=== PATIENT | male | born 1940 | race Caucasian/White ===

== ENCOUNTER → 2016-10-17 | Outpatient (CLI) | payer OTHER, MEDICARE ==
[~2016-10-17] MED LIST: ACT30 PO; AMLO-110 PO; ASPCH81X PO; BENA1TAB19 PO; CHOL1TAB42 PO; DORZ1SOL6 OPB; DOXY50CA26 PO; GLIM1TAB2 PO; METF850T PO; OXYC-57 PO; SIMV80TA2 PO; VITAMIN B12 PO
== END | disposition home or self-care (01) ==
LOC: C.LABSPEC 17:35
PROVIDERS: ATTEND Urology
DX: N40.1 Benign prostatic hyperplasia with lower urinary tract symptoms (principal); R39.9 Unspecified symptoms and signs involving the genitourinary system

== ENCOUNTER → 2017-01-09 | Outpatient (CLI) | payer OTHER, MEDICARE ==
[~2017-01-09] MED LIST changes: -BENA1TAB19 PO; +BENA1TAB53 PO
--- NOTE | 2017-01-09 11:15 | DIAGNOSTIC IMAGING REPORT ---
KUB CLINICAL HISTORY: N20.0 [id number] COMPARISON STUDY: May 2012 FINDINGS: There are vascular calcifications present. There is no pathologic bowel dilatation. There is a right iliac stent present. There is a 6 mm calcification within the right mid abdomen, likely representing a renal calculus. A few additional tiny lower pole right renal calculi are suspected.. IMPRESSION: 1. Right-sided nephrolithiasis, with minimally diminished stone burden when compared the prior 2011 study 2. No evidence of pathologic bowel dilatation Electronically signed by: Hector Beltrán M.D. 01/09/2017 11:14 AM Dictated Date/Time: 01/09/2017 11:12 AM
== END | disposition home or self-care (01) ==
LOC: C.RAD 10:16
PROVIDERS: ATTEND Urology
DX: N20.0 Calculus of kidney (principal); N40.1 Benign prostatic hyperplasia with lower urinary tract symptoms; R39.9 Unspecified symptoms and signs involving the genitourinary system

== ENCOUNTER → 2017-01-15 | Outpatient (CLI) | payer OTHER, MEDICARE ==
[~2017-01-15] MED LIST changes: +BENA1TAB19 PO; -BENA1TAB53 PO
== END | disposition home or self-care (01) ==
LOC: C.LABMFLN 09:10
PROVIDERS: ATTEND Urology
DX: N20.0 Calculus of kidney (principal)

== ENCOUNTER → 2017-01-31 | Day surgery (SDC) | payer OTHER, MEDICARE ==
--- NOTE | 2017-01-16 11:04 | DIAGNOSTIC IMAGING REPORT ---
CHEST 2 VIEWS ROUTINE HISTORY: N20.0 [id number] COMPARISON: None. FINDINGS: The lungs are clear. Cardiac silhouette is normal in size. No pleural effusions. No pneumothorax. IMPRESSION: No acute process. Electronically signed by: Ryan Olmedo M.D. 01/16/2017 11:02 AM Dictated Date/Time: 01/16/2017 11:02 AM
[2017-01-16 12:18] LABS: BASO % 0.4 %; BASO ABS # 0.02 K/uL (0-0.2); COMPLETE YES; EOS % 2.7 %; HEMATOCRIT 36.5 % (42-52); IG% 0.4 %; LYMPH % 19.5 %; LYMPH ABS # 1.01 K/uL (1.2-3.4); MEAN CELL VOLUME 87.7 fL (80-100); MEAN CORPUSCULAR HEMOGLOBIN 27.9 pg (25-34); MEAN CORPUSCULAR HGB CONC 31.8 g/dl (32-36); MEAN PLATELET VOLUME 10.4 fL (7.4-10.4); MONO % 10.1 %; NEUT % 66.9 %; PLATELET COUNT 179 K/uL (130-400); RED BLOOD COUNT 4.16 M/uL (4.7-6.1); WHITE BLOOD COUNT 5.17 K/uL (4.8-10.8)
[2017-01-16 12:32] LABS: CALCIUM 9.2 mg/dl (8.5-10.1)
[2017-01-16 12:34] LABS: BLOOD UREA NITROGEN 21 mg/dl (7-18); BUN/CREATININE RATIO 17.7 (10-20); CARBON DIOXIDE 28 mmol/L (21-32); CHLORIDE 108 mmol/L (98-107); GLUCOSE 88 mg/dl (70-99); POTASSIUM 3.8 mmol/L (3.5-5.1); SODIUM 142 mmol/L (136-145)
[2017-01-20 10:00] VITALS: Ht 175.3 cm; Wt 113.6 kg
[~2017-01-31] VITALS: Ht 175.3 cm; Wt 113.6 kg
[~2017-01-31] MED LIST changes: +ATROPINE SULFATE 0.1 MG/ML 5ML SYR IV PRN; +CIPROFLOXACIN 400MG / D5W IV SCH; +EpHEDrine SULFATE INJ 50 MG/ML AMP IV PRN; +EpHEDrine SULFATE INJ 50 MG/ML AMP ONE; +FENTANYL CITRATE INJ 50 MCG/1 ML 2 ML VIAL IV PRN; +FENTANYL CITRATE INJ 50 MCG/1 ML 2 ML VIAL ONE; +LACTATED RINGER'S 1000ML 1,000 ML IV SCH; +LIDOCAINE HCL 2% 2 ML VIAL (20MG/ML) ONE; +MIDAZOLAM HCL 1 MG/ML 2ML VIAL ONE; +ONDANSETRON INJ 2 MG/ML 2 ML VIAL IV PRN; +ONDANSETRON INJ 2 MG/ML 2 ML VIAL ONE; +OXYCODONE/ACETAMINOPHEN 5-325 TAB PO PRN; +PROMETHAZINE HCL INJ 6.25 MG in SODIUM CHLORIDE 0.9% 50ML 50 ML IV PRN; +PROPOFOL IV EMULSION 10 MG/ML 20 ML VIAL IV ONE
--- NOTE | 2017-01-31 07:34 | DIAGNOSTIC IMAGING REPORT ---
KUB CLINICAL HISTORY: N20.0 [id number] COMPARISON STUDY: 01/07/2017 FINDINGS: There are vascular calcifications present. There is a right iliac stent. There is no pathologic bowel dilatation. There is an 8 mm calcification projected over the right renal shadow, consistent with a calculus. IMPRESSION: 1. Stable right-sided nephrolithiasis 2. No evidence of pathologic bowel dilatation Electronically signed by: Hector Beltrán M.D. 01/31/2017 7:32 AM Dictated Date/Time: 01/31/2017 7:31 AM
--- NOTE | 2017-01-31 07:43 | History & Physical Bridge Note ---
H&P Re-Evaluation Bridge Note: I have examined the patient, reviewed the History & Physical and in the interval since the performance of the History & Physical I have noted the following changes of clinical significance: No changes noted
--- NOTE | 2017-01-31 09:10 | Discharge Instructions ---
Discharge Instructions Date of Service Jan 31, 2017. Admission Reason for Admission: Right Stones;Nephrolithiasis N20.0 Discharge Discharge Diagnosis / Problem: R renal stone s/p ESWL Discharge Goals Goal(s): Improve function, Improve disease control, Therapeutic intervention Activity Recommendations Activity Limitations: as noted below Lifting Limitations: no more than 25 pounds, gradually increase as tolerated ( x 3-5 days) Exercise/Sports Limitations: rest today, gradually increase as tolerated (x 3- 5 days) May Resume Sexual Activity: when tolerated Shower/Bathe: no limitations Driving or Machine Use: resume 1 day after discharge . Instructions / Follow-Up Instructions / Follow-Up Strain urine for stone, bring in to follow-up visit Follow-up as scheduled, KUB Xray before visit as ordered Discharge Diet Recommended Diet: Regular Diet (good fluid intake) Procedures Procedures Performed: R renal ESWL Pending Studies Studies pending at discharge: no Medical Emergencies . Who to Call and When: Medical Emergencies: If at any time you feel your situation is an emergency, please call 911 immediately. . Non-Emergent Contact Non-Emergency issues call your: Urologist Call Non-Emergent contact if: you have a fever, temperature is above 101, your pain is not controlled, your pain is worsening, your pain is unusual for you, your pain is concerning you, you have any medication questions . . "Provider Documentation" section prepared by Gold Lopez. . VTE Core Measure Inpt VTE Proph given/why not?: SCD's [place] Drug Monitoring Program Search Results: patient reviewed within database, no issues identified
--- NOTE | 2017-01-31 09:29 | [facility] Operative Report ---
Operative Report Operative Date Jan 31, 2017. Pre-Operative Diagnosis Right Renal Stone Post-Operative Diagnosis Same Procedure(s) Performed Right Extracorporeal Shock Wave Lithotripsy Surgeon Dr Isaias Lopez Site Leasing Agent Surgeon(s) None Estimated Blood Loss 0ml Findings Excellent fragmentation on fluoroscopy Specimens None Drains NA Anesthesia GALMA Complication(s) None Disposition Recovery Room / PACU Indications R renal stone Description of Procedure The patient was brought to the litho suite. He was correctly identified and the stone was visualized on his most recent x-rays. After the correct time out was performed the patient was positioned over the therapy head. An adequate level of anesthesia was administered. The extracorporeal shockwave lithotripsy treatment was then commenced. Please see the [facility] sheet for complete treatment summary. After completion of the procedure the patient was taken to the recovery room in stable condition. I attest to the content of the Intraoperative Record and any orders documented therein. Any exceptions are noted below. I attest to the content of the Intraoperative Record and any orders documented therein. Any exceptions are noted below.
--- NOTE | 2017-01-31 09:47 | [facility] Post Operative Brief Note ---
Immediate Operative Summary Operative Date Jan 31, 2017. Pre-Operative Diagnosis Right Renal Stone Post-Operative Diagnosis Same Procedure(s) Performed R renal ESWL Surgeon Dr Isaias Lopez Recruitment Officer Surgeon(s) None Estimated Blood Loss 0ml Findings Excellent fragmentation on fluoroscopy Specimens None Drains NA Anesthesia GALMA Complication(s) None Disposition Recovery Room / PACU
[2017-01-31 10:52] VITALS: TEMP 36.4
--- NOTE | 2017-01-31 11:16 | Anesthesiology Progress Note ---
Anesthesia Post Op Note Date & Time Jan 31, 2017 at 11:15 Vital Signs Pain Intensity: 0 Vital Signs Past 12 Hours Date Time Temp Pulse Resp B/P (MAP) Pulse Ox O2 Delivery O2 Flow Rate FiO2 01/31/17 10:52 36.4 70 16 176/92 (120) 99 Room Air 01/31/17 10:41 36.7 70 16 161/87 97 Room Air 01/31/17 10:37 70 9 96 01/31/17 10:37 70 9 01/31/17 10:36 161/74 01/31/17 10:32 72 13 01/31/17 10:32 72 13 99 01/31/17 10:31 178/94 01/31/17 10:27 69 7 01/31/17 10:27 69 7 97 01/31/17 10:26 150/76 01/31/17 10:22 70 12 98 01/31/17 10:22 70 12 01/31/17 10:21 176/109 01/31/17 10:17 75 21 100 01/31/17 10:17 71 21 01/31/17 10:16 149/85 01/31/17 10:12 67 10 01/31/17 10:12 68 10 155/73 100 01/31/17 10:07 69 13 100 01/31/17 10:07 69 13 01/31/17 10:06 136/62 01/31/17 10:02 69 15 100 01/31/17 10:02 69 15 01/31/17 10:01 144/75 01/31/17 10:01 144/75 01/31/17 10:00 71 20 01/31/17 10:00 71 20 100 01/31/17 10:00 71 20 100 01/31/17 10:00 71 20 01/31/17 09:56 137/59 01/31/17 09:56 137/59 01/31/17 09:55 36.1 74 14 137/59 99 Mask 01/31/17 07:49 36.5 67 20 177/74 (108) 98 Room Air Notes Mental Status: alert / awake / arousable, participated in evaluation Pt Amnestic to Procedure: Yes Nausea / Vomiting: adequately controlled Pain: adequately controlled Airway Patency, RR, SpO2: stable & adequate BP & HR: stable & adequate Hydration State: stable & adequate Anesthetic Complications: no major complications apparent
[2017-01-31 11:29] VITALS: BP 179/83; PULSE 77; O2SAT 99
== END | disposition home or self-care (01) ==
LOC: X.SURG 07:36
PROVIDERS: ATTEND Urology
DX: N20.0 Calculus of kidney (principal); N40.1 Benign prostatic hyperplasia with lower urinary tract symptoms; N13.8 Other obstructive and reflux uropathy; I45.10 Unspecified right bundle-branch block; I10 Essential (primary) hypertension; E78.5 Hyperlipidemia, unspecified; E11.9 Type 2 diabetes mellitus without complications; I73.9 Peripheral vascular disease, unspecified; H40.9 Unspecified glaucoma; Z79.82 Long term (current) use of aspirin; Z79.84 Long term (current) use of oral hypoglycemic drugs; Z79.899 Other long term (current) drug therapy

== ENCOUNTER → 2017-02-11 | Outpatient (CLI) | payer OTHER, MEDICARE ==
[~2017-02-11] MED LIST changes: -ATROPINE SULFATE 0.1 MG/ML 5ML SYR IV PRN; -CIPROFLOXACIN 400MG / D5W IV SCH; -EpHEDrine SULFATE INJ 50 MG/ML AMP IV PRN; -EpHEDrine SULFATE INJ 50 MG/ML AMP ONE; -FENTANYL CITRATE INJ 50 MCG/1 ML 2 ML VIAL IV PRN; -FENTANYL CITRATE INJ 50 MCG/1 ML 2 ML VIAL ONE; -LACTATED RINGER'S 1000ML 1,000 ML IV SCH; -LIDOCAINE HCL 2% 2 ML VIAL (20MG/ML) ONE; -MIDAZOLAM HCL 1 MG/ML 2ML VIAL ONE; -ONDANSETRON INJ 2 MG/ML 2 ML VIAL IV PRN; -ONDANSETRON INJ 2 MG/ML 2 ML VIAL ONE; -OXYCODONE/ACETAMINOPHEN 5-325 TAB PO PRN; -PROMETHAZINE HCL INJ 6.25 MG in SODIUM CHLORIDE 0.9% 50ML 50 ML IV PRN; -PROPOFOL IV EMULSION 10 MG/ML 20 ML VIAL IV ONE
--- NOTE | 2017-02-11 12:03 | DIAGNOSTIC IMAGING REPORT ---
KUB CLINICAL HISTORY: Nephrolithiasis. COMPARISON STUDY: KUB January 31, 2017. FINDINGS: There has been apparent interval fragmentation of the right renal calculus since prior exam of January 31, 2017. Largest fragment measures 5 mm. No ureteral calculi or fragments are present. Pelvic calcifications reflect phleboliths. There is extensive vascular calcification. There is a right common iliac artery stent. IMPRESSION: 1. Apparent interval fragmentation of the right renal calculus since prior exam, as above. Calculi fragments measure up to 5 mm. 2. No ureteral calculi identified. Electronically signed by: Robert Grissom M.D. 02/11/2017 12:01 PM Dictated Date/Time: 02/11/2017 11:58 AM
== END | disposition home or self-care (01) ==
LOC: C.RAD 11:07
PROVIDERS: ATTEND Urology
DX: N20.0 Calculus of kidney (principal)

== ENCOUNTER → 2017-05-07 | Outpatient (CLI) | payer OTHER, MEDICARE ==
--- NOTE | 2017-05-07 12:20 | DIAGNOSTIC IMAGING REPORT ---
KUB HISTORY: Right sided kidney stones. Follow-up study. N20.0 [id number] COMPARISON: KUB 02/11/2017. FINDINGS: The bowel gas pattern is non-obstructive. There is no organomegaly. Right-sided renal calculi are again seen measuring up to 5 mm. Findings appear stable from comparison. No definite ureteral calculi. No left sided nephrolithiasis identified. Vascular calcifications noted. Vascular stent graft is noted within the right midabdomen at the L4-L5 level. No pneumoperitoneum or pneumatosis. No fracture. IMPRESSION: 1. Unchanged appearance of fragmented right-sided nephrolithiasis measuring up to 5 mm. 2. No definite ureteral calculi identified. Electronically signed by: Mahin Machado M.D. 05/07/2017 12:19 PM Dictated Date/Time: 05/07/2017 12:17 PM
== END | disposition home or self-care (01) ==
LOC: C.RAD 11:27
PROVIDERS: ATTEND Urology
DX: N20.0 Calculus of kidney (principal)

== ENCOUNTER 2023-02-07 10:04 | Inpatient (IN) ==
--- NOTE | 2023-02-07 10:22 | Emergency Department Note ---
Impression & Plan Pulmonary edema, Edema, peripheral, Chronic kidney insufficiency, Elevated troponin I level ED Provider Note NAME: LEANNA WOLFE AGE: 82 SEX: M : 1940 ARRIVES VIA: Walk-In INFORMANT: Patient, ED PROVIDER(S): Kavon Wallace DO CHIEF COMPLAINT: Shortness of breath HPI: The patient is an 82-year-old male who presented to the emergency department with his significant other for an evaluation of shortness of breath. The patient describes shortness of breath that began approximate 1 month ago. He states it is slowly worsening. He has a history of atrial fibrillation. The patient states that he did have a recent echocardiogram by his primary cinder block mason. He denies having any hemoptysis. He denies having any tarry stool but does have dark stool because he takes iron supplementation. He denies having any fevers. He does have a slight cough which is nonproductive. He does have lower extremity swelling which she states is not new for him. He has a history of diabetes. He states he has been compliant with his outpatient medication regimen otherwise. ROS: See above HPI for pertinent positives & negatives. A total of 10 systems reviewed and were otherwise negative. PAST MEDICAL HISTORY: See Below PAST SURGICAL HISTORY: See Below FAMILY HISTORY: See Below SOCIAL HISTORY: See Below HOME MEDICATIONS: See Below ALLERGIES: See Below VITALS: See Below PHYSICAL EXAMINATION: GENERAL: The patient is awake and alert. Does appear to be somewhat uncomfortable. EYES: The conjunctivae are clear. The pupils are round and reactive. EARS, NOSE, MOUTH AND THROAT: The nose is without any evidence of any deformity. NECK: The neck is nontender and supple. RESPIRATORY: Diminished breath sounds are noted at both bases. There is exertional dyspnea noted. CARDIOVASCULAR: Tachycardic and irregular heart sounds were noted to auscultation. No definite murmur was noted. GASTROINTESTINAL: The abdomen is soft. Abdomen is nontender. MUSCULOSKELETAL/EXTREMITIES: There is no evidence of gross deformity full range of motion is noted in the hips and shoulders. SKIN: Pedal edema was noted bilaterally. Skin was warm and dry. NEUROLOGIC: Patient is awake alert and oriented x3 MEDICAL DECISION MAKING: The patient is an 82-year-old male who presented to the emergency department for an evaluation of difficulty breathing. The patient had significant lower extremity edema. The patient's breath sounds were abnormal and his history and physical exam appear to be consistent with pulmonary edema. The patient was treated with a small dose of Lasix in the emergency department. He does have some abnormal creatinine which she states is baseline. He was also found to have an elevation in his BNP as well as his troponin. I discussed the patient's laboratory and radiographic studies with him. I also discussed this case with the on-call [facility] hospitalist. They have agreed to evaluate the patient in the emergency department for further management and disposition. The patient may require further cardiac work-up to determine cause as well as further therapy. Triage Nursing notes reviewed. Prior medical records reviewed Vital Signs: reviewed and remarkable for hypotension. Differential diagnosis: Reactive airway disease, pneumonia, pneumothorax, COPD, CHF, infections, cardiac ischemia, pulmonary embolism, musculoskeletal, gastrointestinal, as well as other pathologies. ER treatment provided: See below Diagnostics interpreted by me: ECG: EKG was obtained in the emergency department. My interpretation is atrial fibrillation at 100 bpm. Right bundle branch block pattern was noted. No PVCs were noted. Nonspecific ST segment abnormalities were appreciated. This was compared to a tracing from December 30, 2022. No changes were noted. Cardiac Monitoring: An order was placed for continuous cardiac monitoring. The monitor shows a rate of 95 bpm with atrial fibrillation. Laboratory studies: As stated above and show below. Imaging studies: See below. Radiographic imaging was reviewed by myself Consultation(s): I discussed this case with Dr. Simeon [facility]. Past Med/Surg History Medical History Abdominal aortic aneurysm (AAA) without rupture Anemia Chronic kidney disease, stage 3 Dyslipidemia Essential hypertension Hyperlipidemia Iron deficiency anemia Other hyperlipidemia Peripheral vascular disease Primary open angle glaucoma Rosacea Sensory polyneuropathy Type 2 diabetes mellitus Vitamin B-complex deficiency Vitamin D deficiency Social History Smoking Status: Never smoker Tobacco Type: Pipe Do You Dip or Chew Tobacco: No; Hx Alcohol Use: Yes Alcohol Intake Frequency Comment: Rarely Hx Substance Use: No Preferred Language: Ukrainian marital status: Current Living Situation: Spouse Feels Safe at Home: Yes Allergies Allergies Allergy/AdvReac Type Severity Reaction Status Date / Time carvedilol [From Coreg] AdvReac Unknown Elevated BP Unverified 01/20/23 15:32 Home Meds Home Medications Medication Instructions Recorded Confirmed amlodipine 5 mg tablet 5 mg PO DAILY 01/31/21 01/20/23 aspirin 81 mg tablet,delayed 81 mg PO DAILY 01/31/21 01/20/23 release bimatoprost 0.01 % eye drops 1 drp ophthalmic (eye) HS 01/31/21 01/20/23 (Lumigan) cholecalciferol (vitamin D3) 50 50 mcg PO DAILY 01/31/21 01/20/23 mcg (2,000 unit) capsule doxycycline hyclate 50 mg capsule 50 mg PO 2XWK 01/31/21 01/20/23 ferrous sulfate 325 mg (65 mg 650 mg PO DAILY 01/31/21 01/20/23 iron) tablet hydrochlorothiazide 25 mg tablet 25 mg PO DAILY 01/31/21 01/20/23 mecobalamin (vitamin B12) 5,000 5,000 mcg PO .COMPLEX 01/31/21 01/20/23 mcg disintegrating tablet pioglitazone 30 mg tablet 30 mg PO DAILY 01/31/21 01/20/23 benazepril 40 mg tablet 40 mg PO DAILY 02/21/21 01/20/23 metformin 500 mg tablet 850 mg PO BID 02/21/21 01/20/23 metoprolol succinate 25 mg 25 mg PO DAILY 01/20/23 01/20/23 tablet,extended release 24 hr Previous Rx's Medication Instructions Recorded atenolol 50 mg tablet 50 mg PO DAILY #30 tabs 01/14/23 atenolol 50 mg tablet 50 mg PO DAILY #30 tabs 01/14/23 amiodarone 200 mg tablet 200 mg PO BID #60 tabs 01/20/23 apixaban 2.5 mg tablet (Eliquis) 2.5 mg PO BID #60 tabs 01/20/23 Results & Data (ED) Vital Signs Vital Signs - 24 hr 02/07/23 10:08 02/07/23 10:34 02/07/23 10:34 Temperature 36.5 C Temperature Source Temporal Artery Scan Pulse Rate 110 H Pulse Rate [Apical] 103 H Pulse Rhythm [Apical] Irregular Respiratory Rate 18 28 H Respiratory Effort / Characteristics Short of Breath Respiratory Depth Respiratory Pattern Blood Pressure 147/89 H Blood Pressure [Left Arm] 104/60 Blood Pressure Mean 108 Blood Pressure Mean [Left Arm] 74 Blood Pressure Position Sitting Pulse Oximetry 99 95 Oxygen Delivery Method Room Air Room Air Sepsis Recent Fever Within 48 Hours No Sepsis New/Unexplained Change in Mental Status No Sepsis Action Taken by Nursing No Action Required 02/07/23 10:34 02/07/23 10:45 02/07/23 12:41 Temperature Temperature Source Pulse Rate 115 H Pulse Rate [Apical] 95 H Pulse Rhythm [Apical] Regular Respiratory Rate 18 Respiratory Effort / Characteristics Non-Labored Spontaneous Respiratory Depth Normal Respiratory Pattern Regular Blood Pressure Blood Pressure [Left Arm] 95/56 L Blood Pressure Mean Blood Pressure Mean [Left Arm] 69 Blood Pressure Position Pulse Oximetry 95 94 Oxygen Delivery Method Room Air Room Air Sepsis Recent Fever Within 48 Hours Sepsis New/Unexplained Change in Mental Status Sepsis Action Taken by Jail Medications Current Medication List: was personally reviewed by me Laboratory Data Attestation: I reviewed the patient's lab results. 02/07/23 10:30 02/07/23 10:30 Lab Results 02/07/23 02/07/23 02/07/23 Range/Units 10:26 10:30 10:30 WBC 8.07 (4.8-10.8) K/ul RBC 4.07 L (4.70-6.10) M/uL Hgb 11.9 L (14.0-18.0) g/dl Hct 35.7 L (42.0-52.0) % MCV 87.7 (80.0-100.0) fL MCH 29.2 (25.0-34.0) pg MCHC 33.3 (32.0-36.0) g/dL RDW Std Deviation 50.4 H (36.4-46.3) fL RDW Coeff of Piero 15.8 H (11.5-14.5) % Plt Count 223 (130-400) K/uL MPV 11.9 (9.4-12.4) fL Immature Gran % (Auto) 0.9 % Neut % (Auto) 75.8 % Lymph % (Auto) 10.5 % Scott % (Auto) 10.9 % Eos % (Auto) 1.7 % Baso % (Auto) 0.2 % Neut # (Auto) 6.11 (1.40-6.50) K/uL Lymph # (Auto) 0.85 L (1.2-3.4) K/uL Scott # (Auto) 0.88 H (0.11-0.59) K/uL Eos # (Auto) 0.14 (0-0.50) K/uL Baso # (Auto) 0.02 (0-0.2) K/uL Immature Gran # (Auto) 0.07 (0.01-0.20) K/uL PT 11.9 (9.0-12.0) Seconds INR 1.1 (0.9-1.1) APTT 29.7 (21.0-31.0) Seconds PTT Ratio 1.1 VBG pH (7.36-7.41) VBG pCO2 (38-50) mmHg VBG pO2 mmHg VBG HCO3 mmol/L VBG O2 Saturation % VBG Base Excess mEq/L Sodium (136-145) mmol/L Potassium (3.5-5.1) mmol/L Chloride (98-107) mmol/L Carbon Dioxide (21-32) mmol/L Anion Gap (3-11) BUN (6-23) mg/dl Creatinine (0.6-1.4) mg/dl Est Cr Clr Drug Dosing Est GFR ( Amer) ml/min Est GFR (Non-Af Amer) ml/min BUN/Creatinine Ratio (10-20) Glucose (70-99(Fasting)) mg/dl Calcium (8.6-10.3) mg/dl Magnesium (1.7-2.4) mg/dl Total Bilirubin (0.2-1.0) mg/dl AST (13-39) U/L ALT (7-52) U/L Alkaline Phosphatase (34-104) U/L Troponin I High Sens (0-20) pg/ml B-Natriuretic Peptide (0-100) pg/ml Total Protein (6.0-8.3) gm/dl Albumin (3.4-5.0) gm/dl Globulin (2.5-4.0) gm/dl Albumin/Globulin Ratio (0.9-2) SARS-CoV-2, RNA, NAAT NEGATIVE (NEGATIVE) 02/07/23 02/07/23 02/07/23 Range/Units 10:30 10:30 Unknown WBC (4.8-10.8) K/ul RBC (4.70-6.10) M/uL Hgb (14.0-18.0) g/dl Hct (42.0-52.0) % MCV (80.0-100.0) fL MCH (25.0-34.0) pg MCHC (32.0-36.0) g/dL RDW Std Deviation (36.4-46.3) fL RDW Coeff of Piero (11.5-14.5) % Plt Count (130-400) K/uL MPV (9.4-12.4) fL Immature Gran % (Auto) % Neut % (Auto) % Lymph % (Auto) % Scott % (Auto) % Eos % (Auto) % Baso % (Auto) % Neut # (Auto) (1.40-6.50) K/uL Lymph # (Auto) (1.2-3.4) K/uL Scott # (Auto) (0.11-0.59) K/uL Eos # (Auto) (0-0.50) K/uL Baso # (Auto) (0-0.2) K/uL Immature Gran # (Auto) (0.01-0.20) K/uL PT (9.0-12.0) Seconds INR (0.9-1.1) APTT (21.0-31.0) Seconds PTT Ratio VBG pH 7.31 L (7.36-7.41) VBG pCO2 48 (38-50) mmHg VBG pO2 25 mmHg VBG HCO3 24 mmol/L VBG O2 Saturation < 60.0 % VBG Base Excess -2.4 mEq/L Sodium 137 (136-145) mmol/L Potassium 4.6 (3.5-5.1) mmol/L Chloride 101 (98-107) mmol/L Carbon Dioxide 25 (21-32) mmol/L Anion Gap 11 (3-11) BUN 58 H (6-23) mg/dl Creatinine 2.34 H (0.6-1.4) mg/dl Est Cr Clr Drug Dosing Not Reportable Est GFR ( Amer) 29.3 ml/min Est GFR (Non-Af Amer) 25.3 ml/min BUN/Creatinine Ratio 24.8 H (10-20) Glucose 148 H (70-99(Fasting)) mg/dl Calcium 8.9 (8.6-10.3) mg/dl Magnesium 2.0 (1.7-2.4) mg/dl Total Bilirubin 0.7 (0.2-1.0) mg/dl AST 210 H (13-39) U/L ALT 152 H (7-52) U/L Alkaline Phosphatase 68 (34-104) U/L Troponin I High Sens 26.9 H (0-20) pg/ml B-Natriuretic Peptide 811 H (0-100) pg/ml Total Protein 6.4 (6.0-8.3) gm/dl Albumin 4.0 (3.4-5.0) gm/dl Globulin 2.4 L (2.5-4.0) gm/dl Albumin/Globulin Ratio 1.7 (0.9-2) SARS-CoV-2, RNA, NAAT (NEGATIVE) Administered Medications Discontinued Medications Furosemide (Furosemide Inj 20 Mg/2 Ml Vial) 20 mg IV ONE ONE Stop: 02/07/23 13:00 Last Admin: 02/07/23 13:40 Dose: 20 mg Documented By: GLADYS Imaging Data Attestation: I personally reviewed and interpreted this imaging study as follows: My Impression: 1 view chest x-ray was obtained in the emergency department. My interpretation is pulmonary edema with cardiomegaly, left pleural effusion was noted, this was compared to a chest x-ray from January 16, 2017. The pleural effusion is new compared to the previous chest x-ray, final report below. Radiologist's Impression: Chest X-Ray 02/07/23 10:14 XR chest 1V portable CLINICAL HISTORY: Dyspnea TECHNIQUE: Single frontal radiograph of the chest was obtained. Comparison: None available at the time of this dictation. FINDINGS: No lines and tubes are seen. Cardiomegaly is noted. Prominence and cephalization of the vasculature is seen. There is suggestion of a left pleural effusion. IMPRESSION: Cardiomegaly and mild pulmonary edema. Small left pleural effusion. ACT 112: Negative or not required by law. Electronically signed by: Soham Henson M.D. 02/07/2023 11:10 AM Discharge Plan Visit Data Chief Complaint: Shortness of Breath/Dyspnea Stated Complaint: SOB ED Provider: Kavon Wallace Discharge Problem: Pulmonary edema, Edema, peripheral, Chronic kidney insufficiency, Elevated troponin I level Patient Disposition: Being Evaluated by Hospitalist Forms Stand Alone Forms: My [facility] Prescriptions Prescriptions: No Action atenolol 50 mg tablet 50 mg PO DAILY Qty: 30 11RF Rx Instructions: Take 1 tablet by mouth every day. atenolol 50 mg tablet 50 mg PO DAILY Qty: 30 2RF pioglitazone 30 mg tablet 30 mg PO DAILY ferrous sulfate 325 mg (65 mg iron) tablet 650 mg PO DAILY hydrochlorothiazide 25 mg tablet 25 mg PO DAILY amlodipine 5 mg tablet 5 mg PO DAILY doxycycline hyclate 50 mg capsule 50 mg PO 2XWK aspirin 81 mg tablet,delayed release (DR/EC) 81 mg PO DAILY Lumigan 0.01 % drops 1 drp ophthalmic (eye) HS mecobalamin (vitamin B12) 5,000 mcg tablet,disintegrating 5,000 mcg PO .COMPLEX Rx Instructions: 5,000 mcg PO weekly cholecalciferol (vitamin D3) 50 mcg (2,000 unit) capsule 50 mcg PO DAILY metformin 500 mg tablet 850 mg PO BID benazepril 40 mg tablet 40 mg PO DAILY metoprolol succinate 25 mg tablet extended release 24 hr 25 mg PO DAILY amiodarone 200 mg tablet 200 mg PO BID Qty: 60 3RF Eliquis 2.5 mg tablet 2.5 mg PO BID Qty: 60 11RF Referrals Referrals: Nadia Sapp PA-C [Primary Care Provider] - Pulmonary edema Qualifiers: Chronicity: acute Qualified Code(s): J81.0 - Acute pulmonary edema Chronic kidney insufficiency Qualifiers: Chronic kidney disease stage: unspecified stage Qualified Code(s): N18.9 - Chronic kidney disease, unspecified
[2023-02-07 10:37] LABS: Base Excess VBG -2.4 mEq/L; HCO3 VBG 24 mmol/L; Oxygen Saturation VBG < 60.0 %; PCO2 VBG 48 mmHg (38-50); PO2 VBG 25 mmHg; pH VBG 7.31 (7.36-7.41)
[2023-02-07 10:47] LABS: Basophils # (auto) 0.02 K/uL (0-0.2); Basophils % (auto) 0.2 %; Eosinophils # (auto) 0.14 K/uL (0-0.50); Eosinophils % (auto) 1.7 %; Hematocrit (blood only) 35.7 % (42.0-52.0); Hemoglobin 11.9 g/dl (14.0-18.0); Immature Granulocytes # (auto) 0.07 K/uL (0.01-0.20); Immature Granulocytes % (auto) 0.9 %; Lymphocytes # (auto) 0.85 K/uL (1.2-3.4); Lymphocytes % (auto) 10.5 %; Mean Corpuscular Hemoglobin 29.2 pg (25.0-34.0); Mean Corpuscular Hgb Conc 33.3 g/dL (32.0-36.0); Mean Corpuscular Volume 87.7 fL (80.0-100.0); Mean Platelet Volume 11.9 fL (9.4-12.4); Monocytes # (auto) 0.88 K/uL (0.11-0.59); Monocytes % (auto) 10.9 %; Neutrophils # (auto) 6.11 K/uL (1.40-6.50); Neutrophils % (auto) 75.8 %; Platelet Count 223 K/uL (130-400); RDW Coefficient of Variation 15.8 % (11.5-14.5); RDW Standard Deviation 50.4 fL (36.4-46.3); Red Blood Count 4.07 M/uL (4.70-6.10); White Blood Count 8.07 K/ul (4.8-10.8)
[2023-02-07 11:00] LABS: Alanine Aminotransferase 152 U/L (7-52); Albumin Globulin Ratio 1.7 (0.9-2); Alkaline Phosphatase 68 U/L (34-104); Anion Gap 11 (3-11); Aspartate Aminotransferase 210 U/L (13-39); BUN Creatinine Ratio 24.8 (10-20); Bilirubin,Total 0.7 mg/dl (0.2-1.0); Blood Urea Nitrogen 58 mg/dl (6-23); Calcium 8.9 mg/dl (8.6-10.3); Carbon Dioxide 25 mmol/L (21-32); Chloride 101 mmol/L (98-107); Est GFR (African American) 29.3 ml/min; Est GFR (Non-African American) 25.3 ml/min; Globulin 2.4 gm/dl (2.5-4.0); Glucose 148 mg/dl (70-99(Fasting)); Potassium 4.6 mmol/L (3.5-5.1); Sodium 137 mmol/L (136-145); Total Protein 6.4 gm/dl (6.0-8.3)
[2023-02-07 11:04] LABS: Troponin I High Sensitivity 26.9 pg/ml (0-20)
[2023-02-07 11:11] LABS: INR 1.1 (0.9-1.1); Partial Thromboplastin Ratio 1.1; Partial Thromboplastin Time 29.7 Seconds (21.0-31.0); Prothrombin Time 11.9 Seconds (9.0-12.0)
--- NOTE | 2023-02-07 11:11 | XRay Report ---
XR chest 1V portable CLINICAL HISTORY: Dyspnea TECHNIQUE: Single frontal radiograph of the chest was obtained. Comparison: None available at the time of this dictation. FINDINGS: No lines and tubes are seen. Cardiomegaly is noted. Prominence and cephalization of the vasculature i s seen. There is suggestion of a left pleural effusion. IMPRESSION: Cardiomegaly and mild pulmonary edema. Small left pleural effusion. ACT 112: Negative or not required by law. Electronically signed by: Soham Henson M.D. 02/07/2023 11:10 AM
[2023-02-07] MEDS ORDERED: FUROSEMIDE INJ 20 MG/2 ML VIAL IV ONE (12:59)
--- NOTE | 2023-02-07 14:00 | History & Physical Report ---
Date of Service February 07, 2023 Assessment & Plan (1) CHF (congestive heart failure): Plan: Acute congestive heart failure Last echo 02/2022: EF 60-65%, no wall motion abnormalities, grade 1 diastolic dysfunction Repeat echo pending hs-sensitive troponin mildly elevated on admission, 2-hour pending. Continue Lasix Twice daily, titrate to net 1-1.5 L out per day He is with pulmonary edema, small left pleural effusion, and greatly increased bilateral lower extremity edema over the last month ? Rate related cardiomyopathy in the setting of difficult to control A-fib. No prior history of reduced ejection fraction She has not had any chest pain, chest pressure or angina, denies history of ACS/TN EKG without acute territorial signs of ischemia spent Atrial fibrillation, paroxysmal Admitting EKG: A-fib with PVCs. Nonspecific T wave changes without territorial T wave/ST segment changes. QTc 526. Rate 100 Holter 12/2022: Predominantly normal sinus rhythm, paroxysmal A-fib burden approximately 24% with 105 episodes of of up to 3 beats of ventricular tachycardia noted. Continued on metoprolol 25 mg extended release daily, will attempt up titration for A-fib control once patient volume status Amiodarone held for suspicion of hepatic toxicity. 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 Consulted on admission Suspect elevated and clinically volume overloaded, will continue Lasix at this time DVT prophylaxis: Anticoagulated on Eliquis CODE STATUS: DNR/DNI Diet: DM 2, low-salt, heart healthy Disposition: PCU for CHF with A-fib (2) Pulmonary edema: (3) PAF (paroxysmal atrial fibrillation): (4) Hypercholesterolemia: (5) Hypertension: (6) Chronic kidney disease, stage 3: (7) Type 2 diabetes mellitus: (8) Iron deficiency anemia: (9) Essential hypertension: History of Present Illness Primary Care Provider: Nadialeann Mccollum is an 82-year-old male with a past medical history of CKD, paroxysmal A- fib on amiodarone and apixaban, hyperlipidemia, hypertension recently seen 01/20/2023 as outpatient cardiology for exertional dyspnea and started on antiarrhythmic therapy who presents to the hospital today with shortness of breath. Feels shortness of breath has been slowly worsening over the last month and has not been associated with fever, chills, cough, melena, bleeding. In the ER he is mildly hypotensive at 95/56, pulse 95, 94% on room air. He has no leukocytosis, hemoglobin is 11.9 with no baseline available for review and normocytic, platelet count is normal, creatinine is 2.34 without baseline available for review, he has a mild transaminitis 210/152 without prior baseline, troponin is 26.9, BNP is elevated at 811, COVID is negative, and chest x-ray shows cardiomegaly with mild pulmonary edema and a small left pleural effusion. "Bill" reports he could climb stairs last week but has had increasing SoB last month, sinc Friday 'lost all power'. No chest pain or chest pressure No palpitations Legs have been much worse in the last week an dleaking, do not normally leak SoB 'just about with anything' but doesn't think he has much orthopnea, sleeps up on a single pillow. No pain No fevers, chills, or sweats No nausea, vomiting or diarrhea BM has been a few days, last was hard and brown. No blood/melena but is dark and near black since taking iron supplements He has been peeing more since beeing on lasix. Reccomended he see nephrology. Took no medicines this morning except eliquis. Per family practice note review: 12/19/2022: Creatinine 1.4 08/30/2022: ALT 13/AST 15 Medical History: Reviewed Medications: Reviewed Surgical History: Reviewed Family history: Reviewed Allergies: Reviewed Social History: No tobacco products, no Code Status:DNR/DNI Allergies Allergy/AdvReac Type Severity Reaction Status Date / Time carvedilol [From Coreg] AdvReac Unknown Elevated BP Unverified 01/20/23 15:32 Home Medications Medication Instructions Recorded Confirmed Type amlodipine 5 mg tablet 5 mg PO DAILY 01/31/21 02/07/23 History aspirin 81 mg tablet,delayed 81 mg PO DAILY 01/31/21 02/07/23 History release bimatoprost 0.01 % eye drops 1 drp ophthalmic (eye) HS 01/31/21 02/07/23 History ([place]igan) cholecalciferol (vitamin D3) 50 50 mcg PO DAILY 01/31/21 02/07/23 History mcg (2,000 unit) capsule doxycycline hyclate 50 mg capsule 50 mg PO 2XWK 01/31/21 02/07/23 History ferrous sulfate 325 mg (65 mg 650 mg PO DAILY 01/31/21 02/07/23 History iron) tablet hydrochlorothiazide 25 mg tablet 25 mg PO DAILY 01/31/21 02/07/23 History mecobalamin (vitamin B12) 5,000 5,000 mcg PO .COMPLEX 01/31/21 02/07/23 History mcg disintegrating tablet pioglitazone 30 mg tablet 30 mg PO DAILY 01/31/21 02/07/23 History benazepril 40 mg tablet 40 mg PO DAILY 02/21/21 02/07/23 History metformin 500 mg tablet 850 mg PO BID 02/21/21 02/07/23 History atenolol 50 mg tablet 50 mg PO DAILY #30 tabs 01/14/23 02/07/23 Rx amiodarone 200 mg tablet 200 mg PO BID #60 tabs 01/20/23 02/07/23 Rx apixaban 2.5 mg tablet (Eliquis) 2.5 mg PO BID #60 tabs 01/20/23 02/07/23 Rx metoprolol succinate 25 mg 25 mg PO DAILY 01/20/23 02/07/23 History tablet,extended release 24 hr Past Med/Surg History Medical History (Updated 02/07/23 @ 14:19 by Fadi Lindo MD) Abdominal aortic aneurysm (AAA) without rupture Anemia Chronic kidney disease, stage 3 Dyslipidemia Essential hypertension Hyperlipidemia Iron deficiency anemia Other hyperlipidemia Peripheral vascular disease Primary open angle glaucoma Rosacea Sensory polyneuropathy Type 2 diabetes mellitus Vitamin B-complex deficiency Vitamin D deficiency Social History Smoking Status: Never smoker Tobacco Type: Pipe Do You Dip or Chew Tobacco: No; Hx Alcohol Use: Yes Alcohol Intake Frequency Comment: Rarely Hx Substance Use: No Preferred Language: Qatari marital status: Current Living Situation: Spouse Feels Safe at Home: Yes Review of Systems Review of Systems: All systems reviewed & are unremarkable except as noted in Subjective Physical Exam Physical Exam: General: A&Ox3. NAD. Cooperative. HEENT: Atraumatic, normocephalic. Vision/hearing intact Pulm: Bibasilar crackles. Symmetrical chest rise. No increased work of breathing. No respiratory distress. Cardiac: irir, tachycardic, +sm. Radial pulses intact and symmetrical. +JVD. Abdominal: Nontender, nondistended, soft. BS present. Ext: Bilateral 3+ pitting edema, weeping wounds wrapped with clean dressing. Sensation diminished in feet bilaterally but grossly intact to soft touch. Results & Data Results & Data Vital Signs (Past 12 Hours) Vital Signs Temp Pulse Pulse Resp BP BP Pulse Ox 02/07/23 12:41 95 H 18 95/56 L 94 02/07/23 10:45 115 H 02/07/23 10:34 95 02/07/23 10:34 103 H 28 H 104/60 95 02/07/23 10:34 02/07/23 10:08 36.5 C 110 H 18 147/89 H 99 O2 Del Method 02/07/23 12:41 Room Air 02/07/23 10:45 02/07/23 10:34 Room Air 02/07/23 10:34 Room Air 02/07/23 10:34 Room Air 02/07/23 10:08 PG Care Time/CCT Total # of Minutes Spent Total Time Spent with Patient: Total time spent is greater than 50% in coordination of care (as documented) at patient's floor/unit and/or counseling patient: Coding Level of Care Code 88277 INT INP/OBS CARE 3/75MIN Diagnoses CHF (congestive heart failure) I50.9 Pulmonary edema J81.0 Chronicity: acute PAF (paroxysmal atrial fibrillation) I48.0 Hypercholesterolemia E78.00 Hypertension I10 Chronic kidney disease, stage 3 N18.30 Type 2 diabetes mellitus E11.9 Iron deficiency anemia D50.9 Essential hypertension I10 (2) Pulmonary edema Chronicity: acute Qualified Code(s): J81.0 - Acute pulmonary edema
--- NOTE | 2023-02-07 14:16 | Electrocardiogram Report ---
Test Reason : Blood Pressure : / mmHG Vent. Rate : 100 BPM Atrial Rate : 000 BPM P-R Int : 000 ms QRS Dur : 082 ms QT Int : 408 ms P-R-T Axes : 000 -11 013 degrees QTc Int : 526 ms Atrial fibrillation with premature ventricular or aberrantly conducted complexes Low voltage QRS Right bundle branch block Left anterior fascicular block Diffuse Minor Nonspecific T wave abnormality Abnormal ECG When compared with ECG of 30-DEC-2022 16:04, Vent. rate has decreased BY 52 BPM Confirmed by John Soto ([id number]) on 02/07/2023 12:27:12 PM Referred By: REFERRED SELF Confirmed By:John Soto
[2023-02-07 14:36] LABS: Appearance Urine Cloudy (Clear); Bacteria Urine Automated Negative (Negative); Bilirubin Urine Negative (Negative); Blood Urine 3+ (Negative); Color Urine Yellow; Glucose Urine UA Negative (Negative); Ketones Urine Trace (Negative); Leukocyte Esterase Urine Negative (Negative); Nitrite Urine Negative (Negative); Protein Urine 2+ (Negative); Specific Gravity Urine 1.017 (1.000-1.030); Urobilinogen Urine Negative (Negative)
[2023-02-07] MEDS ORDERED: PHARMACY GLYCEMIC MGMT CONSULT PRN (14:42)
[2023-02-07] MEDS ORDERED: GLUCOSE 10 TAB/TUBE PO PRN (14:42)
[2023-02-07] MEDS ORDERED: GLUCOSE 40% GEL 15 GM TUBE PO PRN (14:42)
[2023-02-07] MEDS ORDERED: CARBOHYDRATES FOR HYPOGLYCEMIA PO PRN (14:42)
[2023-02-07] MEDS ORDERED: GLUCAGON FOR INJ 1 MG VIAL SQ PRN (14:42)
[2023-02-07] MEDS ORDERED: DEXTROSE 50% 50 ML SYRINGE IV PRN (14:42)
[2023-02-07 15:16] LABS: Cast Urine Automated 0 /lpf (0-5)
[2023-02-07 15:17] LABS: Epithelial Cell Urine Auto 0-5 /lpf (0-5); RBC Urine Automated 0-4 /hpf (0-4)
--- NOTE | 2023-02-07 16:19 | Nephrology Consultation ---
Date of Consultation February 07, 2023 Assessment & Plan (1) AYS[place]Y (acute kidney injury): Non-oliguric. Electrolytes acceptable. Hypervolemic. Clinical presentation consistent with CRS. IV furosemide has been provided. There is no current indication for BARK FITTER. Urine microscopy is acellular. Renal US will be updated. Document strict I/O's. Repeat metabolic profile tomorrow AM. Medications appropriate for kidney function. Hold benazepril and metformin for now. (2) Chronic kidney disease, stage 3: CKD attributed to DKD. Baseline creatinine 1.4 mg/dL. Outpatient followup with nephrology encouraged. It would be easiest for Chun to arrange clinic in [place] with Dr. Witt. He was receptive to this recommendation. (3) Essential hypertension: BP acceptable or slightly low on presentation. Benazepril and HCTZ held. Furosemide to encourage negative fluid balance. Amlodipine PRN. Metoprolol for rate control. (4) CHF (congestive heart failure): TTE from February 2022 reviewed demonstrating normal LVEF. To be updated. Suspect decompensation in setting of atrial fibrillation. Management per cardiology and hospitalist team. Low sodium diet. Document daily weights. Furosemide PRN. (5) PAF (paroxysmal atrial fibrillation): Eliquis dosed for kidney function. (6) Diabetes mellitus: Outpatient followup for additional evaluation and management of DKD encouraged. History of Present Illness Reason for Consultation: Diabetic kidney disease Requesting Physician: Faid Lindo MD Attending Physician: Fadi Lindo MD History of Present Illness Mr. Chun Plasencia is an 82 year-old male with diabetes mellitus II, hypertension, paroxysmal atrial fibrillation, and chronic kidney disease. He presented to the ER at [facility] today for evaluation of progressive fluid retention and shortness of breath. Mr. Plasencia was seen and evaluated this afternoon with his at the bedside. I discussed the patient's history and plan of care with Dr. Lindo. The patient has not previously seen a legal file clerk. Baseline creatinine based on blood work from August 2022 and December 2022 is 1.4 mg/dL. Chun recently became aware of evidence of CKD and was planning to establish with a legal file clerk. He and his had multiple questions regarding the diagnosis. Fadi has been struggling with progressive dyspnea with exertion, fatigue, and fluid retention for the past 1+ month. He was recently diagnosed with atrial fibrillation and symptoms were attributed to the dysrhythmia. Metoprolol was added last month but symptoms progressed. Dr. Stark (cardiology) started amiodarone earlier this month. Unfortunately, symptoms appeared to progress faster after the medication was started. Chun describes increased fatigue after starting the medication. His has been increasingly concerned and encouraged evaluation in the ER today. Evaluation was notable for atrial fibrillation with increased ventricular rate. EKG with some PVC's or aberrancy. HS troponin mildly elevated. BNP 800. CXR demonstrating cardiomegaly and evidence of CHF. LFTs slightly elevated with AST 210 and ALT 152. Serum creatinine elevated at 1.52 mg/dL. UA with 2+ protein, 3+ blood but acellular microscopy. Furosemide 20 mg IV was provided. Chun reported some early improvement in symptoms. He was resting comfortably on his back at the time of my evaluation. He denies chest pains. He reports occasional palpitations over the past month but nothing sustained for more than a few seconds. He denies lightheadedness, dizziness, syncope or presyncope. However, he does feel that he has been more unsteady on his feet. Activity tolerance has been notably reduced due to dyspnea and fatigue. He has not appreciated any change in urine output. BP has been well controlled. He does not take any NSAIDS. Medical history is also notable for a history of BPH and kidney stones. Chun followed with Dr. Cartagena for several years but has not required urology follow up in ~2 years. PSA had remained normal. He has not experienced any symptoms of kidney stones in several years. There is no recent imaging of the kidneys available for review. He admits to difficulty controlling his blood sugars. He did not tolerate glipizide due to lightheadedness. He is currently being treated with pioglitazone and metformin. He has not developed retinopathy or neuropathy. For recent PAF, he is anticoagulated with apixaban without bleeding complications. BP has been controlled with a combination of amlodipine, atenolol, benazepril, and HCTZ. Metoprolol and amiodarone more recently added for atrial fibrillation. Allergies Allergy/AdvReac Type Severity Reaction Status Date / Time carvedilol [From Coreg] AdvReac Unknown Elevated BP Unverified 01/20/23 15:32 Home Medications Medication Instructions Recorded Confirmed Type amlodipine 5 mg tablet 10 mg PO DAILY 01/31/21 02/07/23 History aspirin 81 mg tablet,delayed 81 mg PO DAILY 01/31/21 02/07/23 History release bimatoprost 0.01 % eye drops 1 drp ophthalmic (eye) HS 01/31/21 02/07/23 History ([place]umigan) cholecalciferol (vitamin D3) 50 50 mcg PO DAILY 01/31/21 02/07/23 History mcg (2,000 unit) capsule doxycycline hyclate 50 mg capsule 50 mg PO 2XWK 01/31/21 02/07/23 History ferrous sulfate 325 mg (65 mg 650 mg PO DAILY 01/31/21 02/07/23 History iron) tablet hydrochlorothiazide 25 mg tablet 25 mg PO DAILY 01/31/21 02/07/23 History mecobalamin (vitamin B12) 5,000 5,000 mcg PO .COMPLEX 01/31/21 02/07/23 History mcg disintegrating tablet pioglitazone 30 mg tablet 30 mg PO DAILY 01/31/21 02/07/23 History benazepril 40 mg tablet 40 mg PO DAILY 02/21/21 02/07/23 History metformin 500 mg tablet 850 mg PO DAILY 02/21/21 02/07/23 History atenolol 50 mg tablet 50 mg PO DAILY #30 tabs 01/14/23 02/07/23 Rx apixaban 2.5 mg tablet (Eliquis) 2.5 mg PO BID #60 tabs 01/20/23 02/07/23 Rx metoprolol succinate 25 mg 25 mg PO DAILY 01/20/23 02/07/23 History tablet,extended release 24 hr amiodarone 200 mg tablet 200 mg PO DAILY 02/07/23 02/07/23 History simvastatin 80 mg tablet 80 mg PO DAILY 02/07/23 02/07/23 History Patient History Medical History Abdominal aortic aneurysm (AAA) without rupture Anemia Chronic kidney disease, stage 3 Dyslipidemia Essential hypertension Hyperlipidemia Iron deficiency anemia Other hyperlipidemia Peripheral vascular disease Primary open angle glaucoma Rosacea Sensory polyneuropathy Type 2 diabetes mellitus Vitamin B-complex deficiency Vitamin D deficiency Social History Smoking Status: Never smoker Tobacco Type: Pipe Do You Dip or Chew Tobacco: No; Hx Alcohol Use: Yes Alcohol Intake Frequency Comment: Rarely Hx Substance Use: No Preferred Language: German marital status: Current Living Situation: Spouse Feels Safe at Home: Yes Review of Systems Review of Systems: All systems reviewed & are unremarkable except as noted in HPI & below Constitutional: + fatigue and + weight gain Respiratory: + dyspnea; no cough Cardiovascular: + dyspnea on exertion and + edema; no chest pain, no orthopnea, no palpitations, no lightheadedness and no syncope Physical Exam Constitutional: well developed; no acute distress Eyes: no scleral abnormality and no corneal abnormality ENMT: Mouth: no oral mucosal abnormality and oral mucous membranes not dry Neck: normal visual inspection and trachea midline Respiratory: normal respiratory effort; not tachypneic Auscultation: + rales Cardiovascular: Rate/Rhythm: + irregularly irregular Heart Sounds: normal S1 and normal S2 Extremities: + edema Musculoskeletal: Extremities: no cyanosis and no clubbing Skin: normal turgor; no jaundice Neurologic: Motor/Sensory: no tremor and no asterixis Psychiatric: Orientation: alert and oriented x 3 Results & Data Vital Signs (Past 12 Hours) Vital Signs Temp Pulse Pulse Resp BP BP Pulse Ox 02/07/23 15:46 118 H 02/07/23 14:21 123 H 20 126/92 93 02/07/23 12:41 95 H 18 95/56 L 94 02/07/23 10:45 115 H 02/07/23 10:34 95 02/07/23 10:34 103 H 28 H 104/60 95 02/07/23 10:34 02/07/23 10:08 36.5 C 110 H 18 147/89 H 99 O2 Del Method 02/07/23 15:46 02/07/23 14:21 Room Air 02/07/23 12:41 Room Air 02/07/23 10:45 02/07/23 10:34 Room Air 02/07/23 10:34 Room Air 02/07/23 10:34 Room Air 02/07/23 10:08 Laboratory Results Laboratory Results - last 24 hr 02/07/23 02/07/23 02/07/23 10:26 10:30 10:30 WBC 8.07 RBC 4.07 L Hgb 11.9 L Hct 35.7 L MCV 87.7 MCH 29.2 MCHC 33.3 RDW Std Deviation 50.4 H RDW Coeff of Piero 15.8 H Plt Count 223 MPV 11.9 Immature Gran % (Auto) 0.9 Neut % (Auto) 75.8 Lymph % (Auto) 10.5 [place] % (Auto) 10.9 Eos % (Auto) 1.7 Baso % (Auto) 0.2 Neut # (Auto) 6.11 Lymph # (Auto) 0.85 L [place] # (Auto) 0.88 H Eos # (Auto) 0.14 Baso # (Auto) 0.02 Immature Gran # (Auto) 0.07 PT 11.9 INR 1.1 APTT 29.7 PTT Ratio 1.1 VBG pH VBG pCO2 VBG pO2 VBG HCO3 VBG O2 Saturation VBG Base Excess Sodium Potassium Chloride Carbon Dioxide Anion Gap BUN Creatinine Est Cr Clr Drug Dosing Est GFR ( Amer) Est GFR (Non-Af Amer) BUN/Creatinine Ratio Glucose POC Glucose Calcium Magnesium Total Bilirubin AST ALT Alkaline Phosphatase Troponin I High Sens B-Natriuretic Peptide Total Protein Albumin Globulin Albumin/Globulin Ratio Urine Color Urine Appearance Urine pH Ur Specific [place] Urine Protein Urine Glucose (UA) Urine Ketones Urine Blood Urine Nitrite Urine Bilirubin Urine Urobilinogen Ur Leukocyte Esterase Urine WBC (Auto) Urine RBC (Auto) U Hyaline Cast (Auto) U Epithel Cells (Auto) Urine Bacteria (Auto) SARS-CoV-2, RNA, NAAT NEGATIVE 02/07/23 02/07/23 02/07/23 10:30 10:30 12:00 WBC RBC Hgb Hct MCV MCH MCHC RDW Std Deviation RDW Coeff of Piero Plt Count MPV Immature Gran % (Auto) Neut % (Auto) Lymph % (Auto) [place] % (Auto) Eos % (Auto) Baso % (Auto) Neut # (Auto) Lymph # (Auto) [place] # (Auto) Eos # (Auto) Baso # (Auto) Immature Gran # (Auto) PT INR APTT PTT Ratio VBG pH 7.31 L VBG pCO2 48 VBG pO2 25 VBG HCO3 24 VBG O2 Saturation < 60.0 VBG Base Excess -2.4 Sodium 137 Potassium 4.6 Chloride 101 Carbon Dioxide 25 Anion Gap 11 BUN 58 H Creatinine 2.34 H Est Cr Clr Drug Dosing Not Reportable Est GFR ( Amer) 29.3 Est GFR (Non-Af Amer) 25.3 BUN/Creatinine Ratio 24.8 H Glucose 148 H POC Glucose Calcium 8.9 Magnesium 2.0 Total Bilirubin 0.7 AST 210 H ALT 152 H Alkaline Phosphatase 68 Troponin I High Sens 26.9 H B-Natriuretic Peptide Total Protein 6.4 Albumin 4.0 Globulin 2.4 L Albumin/Globulin Ratio 1.7 Urine Color Yellow Urine Appearance Cloudy A Urine pH 5.0 Ur Specific [place] 1.017 Urine Protein 2+ H Urine Glucose (UA) Negative Urine Ketones Trace H Urine Blood 3+ H Urine Nitrite Negative Urine Bilirubin Negative Urine Urobilinogen Negative Ur Leukocyte Esterase Negative Urine WBC (Auto) 1-5 Urine RBC (Auto) 0-4 U Hyaline Cast (Auto) 0 U Epithel Cells (Auto) 0-5 Urine Bacteria (Auto) Negative SARS-CoV-2, RNA, NAAT 02/07/23 02/07/23 02/07/23 14:21 15:55 Unknown WBC RBC Hgb Hct MCV MCH MCHC RDW Std Deviation RDW Coeff of Piero Plt Count MPV Immature Gran % (Auto) Neut % (Auto) Lymph % (Auto) [place] % (Auto) Eos % (Auto) Baso % (Auto) Neut # (Auto) Lymph # (Auto) [place] # (Auto) Eos # (Auto) Baso # (Auto) Immature Gran # (Auto) PT INR APTT PTT Ratio VBG pH VBG pCO2 VBG pO2 VBG HCO3 VBG O2 Saturation VBG Base Excess Sodium Potassium Chloride Carbon Dioxide Anion Gap BUN Creatinine Est Cr Clr Drug Dosing Est GFR ( Amer) Est GFR (Non-Af Amer) BUN/Creatinine Ratio Glucose POC Glucose 127 H Calcium Magnesium Total Bilirubin AST ALT Alkaline Phosphatase Troponin I High Sens 26.6 H B-Natriuretic Peptide 811 H Total Protein Albumin Globulin Albumin/Globulin Ratio Urine Color Urine Appearance Urine pH Ur Specific [place] Urine Protein Urine Glucose (UA) Urine Ketones Urine Blood Urine Nitrite Urine Bilirubin Urine Urobilinogen Ur Leukocyte Esterase Urine WBC (Auto) Urine RBC (Auto) U Hyaline Cast (Auto) U Epithel Cells (Auto) Urine Bacteria (Auto) SARS-CoV-2, RNA, NAAT Diagnostic Findings XR chest 1V portable Cardiomegaly is noted. Prominence and cephalization of the vasculature is seen. There is suggestion of a left pleural effusion. IMPRESSION: Cardiomegaly and mild pulmonary edema. Small left pleural effusion. PG Care Time/CCT Total # of Minutes Spent Total Time Spent with Patient: Total time spent is greater than 50% in coordination of care (as documented) at patient's floor/unit and/or counseling patient: Coding Level of Care Code 98877 IN/OBS CONSULT LVL 4,60M Diagnoses YASMANY (acute kidney injury) N17.9 Chronic kidney disease, stage 3 N18.30 Essential hypertension I10 CHF (congestive heart failure) I50.9 PAF (paroxysmal atrial fibrillation) I48.0 Diabetes mellitus E11.9
[2023-02-07] MEDS ORDERED: ACETAMINOPHEN 325 MG TAB PO PRN (17:06)
--- NOTE | 2023-02-07 17:10 | Ultrasound Report ---
US liver CLINICAL HISTORY: Transaminitis. COMPARISON STUDY: KUB January 08, 2019. FINDINGS: A small right pleural effusion is incidentally noted. No hepatic lesions are identified. Th ere is slight prominence of the portal triads. There is no biliary ductal dilatation. The common bile duct measures 5 mm in caliber. The gallbladder is mildly distended. There is no gallbladder wall thi ckening. No gallstones are noted. A small amount of sludge within the gallbladder is noted. No sonogr aphic Muller sign was elicited. Pancreas is obscured. Please note that the renal ultrasound will be r eported separately. IMPRESSION: 1. No gallstones or biliary ductal dilatation. 2. Mildly distended gallbladder with a small amount of sludge. However, no sonographic Muller sign or wall thickening. 3. Small right pleural effusion. ACT 112: Negative or not required by law. Electronically signed by: Robert Grissom M.D. 02/07/2023 5:08 PM
--- NOTE | 2023-02-07 17:11 | XCELERA ---
[id number]
--- NOTE | 2023-02-07 17:16 | Ultrasound Report ---
US renal/blad retro comp CLINICAL HISTORY: YASMANY on CKD TECHNIQUE: Multiple sonographic real-time images of the kidneys and bladder were obtained. COMPARISON: None available at the time of this dictation. FINDINGS: The right kidney measures 10.1 cm in length, and the left kidney measures 10.6 cm in length. The right kidney is normal in size, contour, cortical thickness, and echogenicity. No hydronephrosis is identified. Vascular calcifications versus nonobstructing stones. A 1.3 cm cyst is noted. The left kidney is normal in size, contour, cortical thickness and echogenicity. No hydronephrosis i s identified. Vascular calcifications versus nonobstructive stones. 1.4 cm cyst. The bladder is partially distended. Jets were not visualized. IMPRESSION: No evidence of hydronephrosis. ACT 112: Negative or not required by law. Electronically signed by: Soham Henson M.D. 02/07/2023 5:14 PM
--- NOTE | 2023-02-07 17:49 | Cardiology Consultation ---
Date of Consultation February 07, 2023 Assessment & Plan (1) Persistent atrial fibrillation: Recent onset atrial fibrillation which is now persistent for 2 months with currently suboptimally controlled ventricular rate. Would consolidate his negative chronotropic medication by using metoprolol alone, therefore agree with discontinuing amiodarone and atenolol and titrating metoprolol upward as tolerated. Temporarily switch to metoprolol tartrate to allow aggressive upward titration with less concern for sustained hypotension if BP does not tolerate. Given borderline pressure, would discontinue amlodipine to allow for more aggressive beta-stephanie titration as well as to potentially reduce leg edema. Presently, would change metoprolol succinate to metoprolol tartrate at 25 mg p.o. every 6 hours, with hold order for systolic blood pressure less than 85 mmHg. Once his ventricular rate is well controlled, could switch back to long-acting metoprolol succinate. [id number] score is at least 5, continue on apixaban at reduced dose due to advanced age and diminished renal function. (2) Heart failure with mid-range ejection fraction (HFmEF): Markedly hypervolemic, agree with aggressive IV diuresis (furosemide 40 mg IV twice daily). With significant diuresis expected, will probably need potassium supplement, but given his renal insufficiency would not add prophylactically but based on daily electrolytes. His systolic function has declined considerably, suspect this is secondary to uncontrolled ventricular rate, as such LV function likely will improve as his rate control improves. (3) Moderate mitral regurgitation: His increased mitral regurgitation and pulmonary hypertension may improve with better rate control. (4) Elevated liver transaminase level: Unclear whether this is due to passive liver congestion or direct toxicity of amiodarone, either way agree with discontinuation of amiodarone. At this point, no abdominal pain or other suggestion of primary hepatic disease, follow daily transaminases with expectation they will improve off amiodarone and with treatment of CHF. (5) YASMANY (acute kidney injury): Likely secondary to CHF/volume overload superimposed on chronic kidney disease. Appreciate nephrology input by Dr. Argueta. (6) Chronic kidney disease, stage 3: As above. (7) Hypertension: History of hypertension, currently BP running low normal. To avoid having to hold beta-stephanie and diminishing aggressiveness of rate control titration, would discontinue amlodipine. History of Present Illness Reason for Consultation: A-fib/CHF Requesting Physician: Fadi Lindo MD Attending Physician: Fadi Lindo MD History of Present Illness 82-year-old man with obesity, hypertension, mitral regurgitation (currently moderate), and DM who was recently diagnosed with paroxysmal atrial fibrillation (onset November 2022), now admitted with progressive dyspnea on exertion and leg edema, noted to be in persistent atrial fibrillation with suboptimally controlled ventricular response (120 bpm range) and to have transaminase elevations. He was first noted to have atrial fibrillation 2 months ago, metoprolol was added to his atenolol, then amiodarone initiated in hopes of returning him to sinus rhythm. However, he felt very washed out and noted marked dyspnea on exertion and fatigue, he reduced his amiodarone from 200 mg twice daily to 200 mg daily. He continued to feel more dyspneic and noted worsening leg edema and presented to the emergency department today. He denies chest pain at any time, subjective palpitations, presyncope, or syncope. He does have mild orthostatic lightheadedness from time to time. He notes that his weight has not really changed over the past few weeks. ER evaluation showed atrial fibrillation with right bundle branch block, left anterior fascicular block, diffuse nonspecific minor T wave abnormality. Compared with 12/30/2022 ECG, ventricular rate had decreased by 52 bpm. Chest x- ray showed cardiomegaly and mild pulmonary edema with a small left pleural effusion. Troponins were 26.9 and 26.6. Electrolytes were normal but he was azotemic with a BUN of 58 and a creatinine of 2.34. Transaminases were elevated with AST of 210 and ALT of 152. Pulse ox was 93% on room air, therefore supplemental oxygen was not initiated. Echocardiogram today showed EF 35 to 40%, moderate global hypokinesis, moderate mitral regurgitation, mild pulmonary hypertension. Compared with 2021 study, LV systolic function has declined, mitral regurgitation is more severe, mild pulmonary hypertension is now noted. At the time of my evaluation in the emergency department, he was comfortable at rest and able to lie flat, however even minimal activity resulted in dyspnea. Allergies Allergy/AdvReac Type Severity Reaction Status Date / Time carvedilol [From Coreg] AdvReac Unknown Elevated BP Unverified 01/20/23 15:32 Home Medications Medication Instructions Recorded Confirmed Type amlodipine 5 mg tablet 10 mg PO DAILY 01/31/21 02/07/23 History aspirin 81 mg tablet,delayed 81 mg PO DAILY 01/31/21 02/07/23 History release bimatoprost 0.01 % eye drops 1 drp ophthalmic (eye) HS 01/31/21 02/07/23 History ([place]) cholecalciferol (vitamin D3) 50 50 mcg PO DAILY 01/31/21 02/07/23 History mcg (2,000 unit) capsule doxycycline hyclate 50 mg capsule 50 mg PO 2XWK 01/31/21 02/07/23 History ferrous sulfate 325 mg (65 mg 650 mg PO DAILY 01/31/21 02/07/23 History iron) tablet hydrochlorothiazide 25 mg tablet 25 mg PO DAILY 01/31/21 02/07/23 History mecobalamin (vitamin B12) 5,000 5,000 mcg PO .COMPLEX 01/31/21 02/07/23 History mcg disintegrating tablet pioglitazone 30 mg tablet 30 mg PO DAILY 01/31/21 02/07/23 History benazepril 40 mg tablet 40 mg PO DAILY 02/21/21 02/07/23 History metformin 500 mg tablet 850 mg PO DAILY 02/21/21 02/07/23 History atenolol 50 mg tablet 50 mg PO DAILY #30 tabs 01/14/23 02/07/23 Rx apixaban 2.5 mg tablet (Eliquis) 2.5 mg PO BID #60 tabs 01/20/23 02/07/23 Rx metoprolol succinate 25 mg 25 mg PO DAILY 01/20/23 02/07/23 History tablet,extended release 24 hr amiodarone 200 mg tablet 200 mg PO DAILY 02/07/23 02/07/23 History simvastatin 80 mg tablet 80 mg PO DAILY 02/07/23 02/07/23 History Patient History Medical History Abdominal aortic aneurysm (AAA) without rupture Anemia Chronic kidney disease, stage 3 Dyslipidemia Essential hypertension Hyperlipidemia Iron deficiency anemia Other hyperlipidemia Peripheral vascular disease Primary open angle glaucoma Rosacea Sensory polyneuropathy Type 2 diabetes mellitus Vitamin B-complex deficiency Vitamin D deficiency Social History Smoking Status: Never smoker Tobacco Type: Pipe Do You Dip or Chew Tobacco: No; Hx Alcohol Use: Yes Alcohol Intake Frequency Comment: Rarely Hx Substance Use: No Preferred Language: Italian marital status: Current Living Situation: Spouse Feels Safe at Home: Yes Physical Exam Physical Exam: Elderly white male in no acute distress, does exhibit dyspnea with minimal exertion. Weight 254 pounds, this is actually 17 pounds less than his weight 3 weeks ago. BP normotensive at 126/92 mmHg. Pulse 120 bpm and irregular. Skin: Scattered ecchymoses both forearms, no generalized lesions. HEENT: unremarkable. Neck: JVP nearly to the angle of the jaw at 90 degrees, no carotid bruits. Lungs: Mildly diminished breath sounds with bibasilar crackles, no wheezing, rhonchi, or accessory muscle use. Cardiac: Faint heart tones, irregular/tachycardic rhythm, no obvious murmur or gallop. Abdomen: benign. Extremities: 3+ pretibial pitting edema with marked erythema and weeping areas both lower legs. Neurologic: normal affect and conversation, nonfocal. Results & Data Laboratory Results Labs as noted in HPI. Diagnostic Findings Chest x-ray, ECG, and echocardiogram as noted in HPI. PG Care Time/CCT Total # of Minutes Spent Total Time Spent with Patient: Total time spent is greater than 50% in coordination of care (as documented) at patient's floor/unit and/or counseling patient: Coding Level of Care Code 15449 IN/OBS CONSULT LVL 4,60M Diagnoses Persistent atrial fibrillation I48.19 Heart failure with mid-range ejection fraction (HFmEF) I50.22 Moderate mitral regurgitation I34.0 Elevated liver transaminase level R74.01 YASMANY (acute kidney injury) N17.9 Chronic kidney disease, stage 3 N18.30 Hypertension I10
[2023-02-07] MEDS: INSULIN ASPART PER UNIT CHARGE SC SCH ×2 (18:45→21:05)
[2023-02-07] MEDS: FUROSEMIDE 40 MG/4 ML VIAL IV SCH (18:46)
--- NOTE | 2023-02-07 19:22 | Pharmacy Report ---
Pharmacy Glycemic Short Note 2 - Date of Service February 07, 2023 - Glycemic Short BSG Results (Last 24 hours): 02/07/23 02/07/23 10:30 15:55 Glucose 148 H POC Glucose 127 H OUTPATIENT ANTIDIABETIC REGIMEN: * Metformin 850 mg PO daily * Pioglitazone 30 mg PO daily * A1c pending ASSESSMENT: * Chun is a 82 yo T2DM who presented with shortness of breath. PMH of CKD, paroxysmal A-fib, hyperlipidemia, and hypertension. * Oral anti-diabetic agents have been held for admission. Will start patient on weight based SQ basal + bolus insulin. * Will dose Lantus conservatively given age, insulin naive, YASMANY, and unknown degree of outpatient glycemic control. PLAN FOR INPATIENT GLYCEMIC CONTROL: * Hold outpatient oral diabetes medications * Basal insulin * Lantus 10 units SQ x 1 dose * Reassess 02/08 * Bolus insulin * NovoLog per scale ACHS or Q6hrs while NPO * Goal Range: Low 120 mg/dL - High 150 mg/dL * Correction Factor: 20 mg/dL/unit * Nutritional / Prandial insulin per carb ratio of 1 unit per 10 grams CHO consumed
[2023-02-07] MEDS: METOPROLOL TARTRATE 25 MG TAB PO SCH (19:50)
[2023-02-07] MEDS ORDERED: LANTUS PER UNIT CHARGE SQ SCH ×2 (21:00)
[2023-02-07] MEDS: BIMATOPROST 0.01% OP SOLN 2.5 ML BTL OP SCH (21:16)
[2023-02-07] MEDS: APIXABAN 2.5 MG TAB PO SCH (21:16)
[2023-02-08] MEDS: METOPROLOL TARTRATE 25 MG TAB PO SCH ×3 (01:11→13:05)
[2023-02-08 04:50] LABS: Basophils # (auto) 0.04 K/uL (0-0.2); Basophils % (auto) 0.6 %; Eosinophils # (auto) 0.11 K/uL (0-0.50); Eosinophils % (auto) 1.6 %; Hematocrit (blood only) 33.4 % (42.0-52.0); Immature Granulocytes # (auto) 0.04 K/uL (0.01-0.20); Immature Granulocytes % (auto) 0.6 %; Lymphocytes # (auto) 0.77 K/uL (1.2-3.4); Lymphocytes % (auto) 11.2 %; Mean Corpuscular Hgb Conc 32.9 g/dL (32.0-36.0); Mean Corpuscular Volume 88.1 fL (80.0-100.0); Mean Platelet Volume 11.8 fL (9.4-12.4); Monocytes % (auto) 13.1 %; Neutrophils # (auto) 5.01 K/uL (1.40-6.50); Neutrophils % (auto) 72.9 %; Platelet Count 185 K/uL (130-400); RDW Coefficient of Variation 15.6 % (11.5-14.5); RDW Standard Deviation 50.2 fL (36.4-46.3); Red Blood Count 3.79 M/uL (4.70-6.10); White Blood Count 6.87 K/ul (4.8-10.8)
[2023-02-08 04:53] LABS: Albumin Globulin Ratio 1.7 (0.9-2); Albumin Level 3.4 gm/dl (3.4-5.0); BUN Creatinine Ratio 25.9 (10-20); Bilirubin,Total 0.6 mg/dl (0.2-1.0); Calcium 8.6 mg/dl (8.6-10.3); Creatinine Clr Calc Pharmacy 32.2 ml/min; Est GFR (African American) 29.7 ml/min; Est GFR (Non-African American) 25.6 ml/min; Potassium 4.4 mmol/L (3.5-5.1); Total Protein 5.4 gm/dl (6.0-8.3)
--- NOTE | 2023-02-08 07:19 | Hospitalist Progress Note ---
Date of Service February 08, 2023 Assessment & Plan (1) Persistent atrial fibrillation: (2) Heart failure with mid-range ejection fraction (HFmEF): (3) Moderate mitral regurgitation: (4) Elevated liver transaminase level: (5) YASMANY (acute kidney injury): (6) Chronic kidney disease, stage 3: (7) Hypertension: Plan Chun is an 82 year old man with history of CKD, pAFib (Dx 2 Mo. ago, uncontrolled), anticoagulation (on Eliquis), HTN, and HLD who presented to the ER with increasing dyspnea and an acute loss of energy/fatigue starting on Friday. Patient was admitted for management of acute CHF in the setting of uncontrolled A Fib. Acute systolic congestive heart failure - Patient with evidence of pulmonary edema, small left pleural effusion, JVD, and significant bilateral LE edema (increased over last month) - Patient denies any chest pain, pressure, or angina and has no hx of ACS/MD - Echocardiogram * Echo 02/2022: EF 60-65%, no wall motion abnormalities, grade 1 diastolic dysfunction * Echo 02/07/23: EF 35-40%, moderate global hypokinesis of LV, LV mildly dilated, RVSP 30-40 mmHg 02/07 HS Troponin peaked at 35, BNP 811 H, AST/ALT 200/140 H (respectively) - Cardiology Consultation: * Markedly hypervolemic, agree with aggressive IV diuresis (furosemide 40 mg IV twice daily) New onset CMP - tachycardia induced. follow? . - follow for further cardio recommendation Paroxysmal Atrial Fibrillation - CHADsVASC 5 - Holter Monitor 12/2022: * Primarily NSR, A Fib burden 24% - Cardiology Consultation * Increase Metoprolol to 50 mg q8h * Hold Amiodarone d/t concern for hepatic toxicity * Digoxin use limited by YASMANY/CKD * Discontinue Aspirin as patient is on Apixaban YASMANY on CKD - Baseline Cr 1.4, currently 2.32 - Likely a/w significant hypervolemia - Will continue Lasix for diuresis - Nephrology consultation: * Suspect presentation d/t CRS * Continue to hold benazepril and metformin for now * Continue negative fluid balance Transaminitis - Ddx: Hepatic congestion d/t CHF, amiodarone toxicity (discontinued on admission) * Of note, transaminases normal prior to December when Amiodarone started - Liver US: * There is slight prominence of the portal triads. - Follow CMP T2DM w/ Nephropathy (severe) - Metformin held on admission (d/t YASMANY) - HIRAL-I held on admission (d/t YASMANY) - Pioglitazone held on admission (can increase fluid retention) - BSG on presentation 148, goal 110-140 * Weight based basal bolus at this time - 02/07 HbA1c 6.5 HTN - Amlodipine, HCTZ, and Benazepril held on admission - Metoprolol increased to 50 mg q8h - BP remains well controlled (110-120/60-70) - Continue to montitor BP DVT prophylaxis: Anticoagulated on Eliquis CODE STATUS: DNR/DNI Diet: DM 2, low-salt, heart healthy Disposition: PCU for CHF with A-fib Admission and Anticipated Discharge Date Admission Date: February 07, 2023 Supervising Physician Co-Signing Physician Notes Resident Physician Supervision Note: I independently interviewed and examined the patient and verified the kraft history and physical, reviewed labs and image studies and agree with resident findings and care plan. Subjective 02/08: Chun was resting comfortably in his room upon arrival. He notes that his dyspnea is improving, but he does not feel 100% yet. Patient states that he has been struggling with uncontrolled Atrial Fibrillation over the last 2 months, and has ultimately felt more fatigued and dyspneic over this time period. But this last week, on Friday, he felt like he had absolutely no energy. This sudden change in symptoms, with his ongoing dyspnea, prompted him to present to the hospital. Patient denies any chest pain, pleuritic pain, or abdominal pain. He is not experiencing any lightheadedness, dizziness, or headaches. He does note chronic lower extremity edema, which has been draining serous fluid increasingly over the last few weeks. He has attempted to wrap the area at home to collect the draining fluid, but has ultimately developed blisters on his legs. Physical Exam Physical Exam: Gen: NAD, alert, interactive Neuro: AO x 3, no focal neurologic defects HEENT: NCAT, Supple, no LAD, faint JVD w/ hepatojugular reflex Resp:Non-labored, no wheezing, bibasilar crackles present CV:irregular rate, irregular rhythm, normal S1/S2, systolic murmur Abd: Soft, non-distended, no TTP, normoactive bowels, no masses Extr: 2+ dp bilaterally, 3+ pitting edema of bilateral LE (to knee), wrapped in dressing, evidence of symmetric dark erythema (to mid-calf) bilaterally, sensation intact Results & Data Results & Data Vital Signs (Past 12 Hours) Vital Signs Temp Pulse Pulse Resp BP Pulse Ox O2 Del Method 02/08/23 06:31 101 H 113/60 02/08/23 03:57 36.6 C 94 H 16 116/64 94 Room Air 02/07/23 23:30 36.5 C 116 H 18 109/67 94 Room Air 02/07/23 22:01 89 02/08/23 01:09 91 H 120/73 02/07/23 19:45 Room Air 02/07/23 19:46 36.9 C 105 H 20 137/75 93 Room Air Resident Activity Tracking Resident Involvement: Resident Care Provided Care Provided: Adult Hospital Medicine
--- NOTE | 2023-02-08 08:54 | Nephrology Progress Note ---
Date of Service February 08, 2023 Assessment & Plan (1) YASMANY (acute kidney injury): Plan: * Nonoliguric YASMANY due to CRS * 02/07 Echocardiogram shows drop in LVEF to 35-40% and moderate MR. IV furosemide has been started. Patient is diuresing well * Urine microscopy is acellular * 02/07 Renal US is negative for obstruction * Hold benazepril and metformin for now * Electrolyte balance is acceptable. No acute indication for HD at this time (2) Chronic kidney disease, stage 3: Plan: * CKD attributed to DKD * Baseline creatinine 1.4 mg/dL * Will need outpatient Nephrology with Dr. Witt in [place] (3) Essential hypertension: Plan: * BP is acceptable * Continue to hold Benazepril and HCTZ (4) CHF (congestive heart failure): Plan: * 02/07/23 echocardiogram show LVEF 35-45% w/ mod MR * Continue diuresis, use Metoprolol for atrial fibrillation rate control * Await further Cardiology recommendations (5) PAF (paroxysmal atrial fibrillation): Plan: * On Apixaban, Metoprolol Admission and Anticipated Discharge Date Admission Date: February 07, 2023 Subjective Mr. Plasencia was evaluated in his hospital room this morning. He reports brisk UO in response to IV Furosemide therapy. His breathing is subjectively improved but he notes persistent LE swelling Review of Systems Constitutional: no fever Eyes: no problem reported Ear, Nose, Mouth, Throat: no problem reported Respiratory: no cough and no dyspnea Cardiovascular: no chest pain Gastrointestinal: no abdominal pain, no nausea, no vomiting and no diarrhea/loose stools Genitourinary: no dysuria or no hematuria Integumentary: no rash Physical Exam Constitutional: not in distress Eyes: PERRL, conjunctivae normal, anicteric sclerae ENMT: external ear and nose normal, oropharynx normal Neck: trachea midline, no thyromegaly Respiratory: normal respiratory effort, lungs clear to auscultation Cardiovascular: Rate/Rhythm: regular rhythm and + tachycardic Extremities: + edema (2+ pretibial pitting edema) Gastrointestinal (Abdomen): normal bowel sounds, soft, nontender, no hepatosplenomegaly Neurologic: Speech / Cognition: normal speech and normal cognition Results & Data Vital Signs (Past 12 Hours) Vital Signs Temp Pulse Pulse Resp BP Pulse Ox O2 Del Method 02/08/23 07:53 36.4 C L 119 H 18 123/78 94 Room Air 02/08/23 06:31 101 H 113/60 02/08/23 03:57 36.6 C 94 H 16 116/64 94 Room Air 02/07/23 23:30 36.5 C 116 H 18 109/67 94 Room Air 02/07/23 22:01 89 02/08/23 01:09 91 H 120/73 Laboratory Results Laboratory Tests 02/07/23 02/07/23 02/08/23 10:30 12:00 04:05 WBC 6.87 Hgb 11.0 L Hct 33.4 L Plt Count 185 Sodium Potassium Chloride Carbon Dioxide Creatinine 2.34 H Urine Color Yellow Urine pH 5.0 Ur Specific [place] 1.017 Urine Protein 2+ H Urine Blood 3+ H Urine Nitrite Negative Ur Leukocyte Esterase Negative Urine RBC (Auto) 0-4 Urine Bacteria (Auto) Negative 02/08/23 04:05 WBC Hgb Hct Plt Count Sodium 139 Potassium 4.4 Chloride 104 Carbon Dioxide 26 Creatinine 2.32 H Urine Color Urine pH Ur Specific [place] Urine Protein Urine Blood Urine Nitrite Ur Leukocyte Esterase Urine RBC (Auto) Urine Bacteria (Auto) Diagnostic Findings 02/07/23 Renal US - R 10.1, L 10.6 cm. No hydronephrosis 02/07/23 CXR - Cardiomegaly and mild pulmonary edema. Small left pleural effusion 02/07/23 Echocardiogram - LVEF 35-40% with moderate MR PG Care Time/CCT Total # of Minutes Spent Total Time Spent with Patient: Total time spent is greater than 50% in coordination of care (as documented) at patient's floor/unit and/or counseling patient: Coding Level of Care Code 28848 SUB INP/OBS CARE 3/50MIN Diagnoses YASMANY (acute kidney injury) N17.9 Chronic kidney disease, stage 3 N18.30 Essential hypertension I10 CHF (congestive heart failure) I50.9 PAF (paroxysmal atrial fibrillation) I48.0
[2023-02-08] MEDS ORDERED: ASPIRIN 81 MG ECTAB PO SCH (09:00)
[2023-02-08] MEDS ORDERED: amLODIPine BESYLATE 5 MG TAB PO SCH (09:00)
[2023-02-08] MEDS ORDERED: METOPROLOL SUCC 25MG EXT REL TAB PO SCH (09:00)
[2023-02-08 09:09] LABS: Estimated Average Glucose 140 mg/dl; Hemoglobin A1C 6.5 % (4.5-5.6)
[2023-02-08] MEDS: FERROUS SULFATE 325 MG TAB PO SCH (09:12)
[2023-02-08] MEDS: CHOLECALCIFEROL 1,000 UNITS 25 MCG TAB PO SCH (09:13)
[2023-02-08] MEDS: APIXABAN 2.5 MG TAB PO SCH ×2 (09:13→21:25)
[2023-02-08] MEDS: FUROSEMIDE 40 MG/4 ML VIAL IV SCH ×2 (09:14→17:37)
[2023-02-08] MEDS: INSULIN ASPART PER UNIT CHARGE SC SCH ×4 (09:16→21:28)
--- NOTE | 2023-02-08 12:40 | Cardiology Progress Note ---
Date of Service February 08, 2023 Assessment & Plan (1) Persistent atrial fibrillation: Plan: Ventricular response to atrial fibrillation still suboptimally controlled. Would increase metoprolol to tartrate to 50 mg every 8 hours. Not considering digoxin as yet given uncertainty regarding his renal function. [id number] score is at least 5, continue on apixaban at reduced dose due to advanced age and diminished renal function. He does have peripheral arterial disease, however he has not had any recent interventional procedures and does not have known coronary disease or any apparent neurologic indication for antiplatelet therapy, therefore would discontinue aspirin to reduce bleeding risk in this 82-year-old individual on apixaban. (2) Heart failure with mid-range ejection fraction (HFmEF): Plan: Still appears hypervolemic, continue aggressive diuresis while inpatient and while he can be closely monitored with daily labs. (3) Moderate mitral regurgitation: (4) Elevated liver transaminase level: Plan: Mild improvement overnight, continue to monitor. (5) YASMANY (acute kidney injury): Plan: Per nephrology. (6) Chronic kidney disease, stage 3: (7) Hypertension: Plan: Normotensive currently. Admission and Anticipated Discharge Date Admission Date: February 07, 2023 Subjective Patient with no complaints at rest. Noted good urine output yesterday. Breathing is may be a little better but he still feels very fatigued. Minor improvement in leg edema. No chest pain, dyspnea at rest, subjective palpitations, or lightheadedness. Telemetry showed atrial fibrillation with ventricular rate 100-110 bpm Physical Exam Physical Exam: Appears comfortable BP normotensive. Pulse 104 bpm and irregular. Skin: Scattered ecchymoses both forearms, no generalized lesions. HEENT: unremarkable. Neck: JVP just above the clavicle at 90 degrees, no carotid bruits. Lungs: Mildly diminished breath sounds with bibasilar crackles, no wheezing, rhonchi, or accessory muscle use. Cardiac: Faint heart tones, irregular/borderline tachycardic rhythm, no obvious murmur or gallop. Abdomen: benign. Extremities: 2-3+ pretibial pitting edema with marked erythema and weeping areas both lower legs. Neurologic: normal affect and conversation, nonfocal. Results & Data Laboratory Results Normal electrolytes, BUN 60, creatinine 2.32 (2.34 yesterday). AST 200, ALT 140 (both slightly lower) Diagnostic Findings Echocardiogram showed EF 35 to 40%, moderate global hypokinesis, moderate mitral regurgitation with mild pulmonary hypertension. Compared to 2021 study, LV systolic function has declined, mitral regurgitation is more severe, and mild pulmonary hypertension is now noted. PG Care Time/CCT Total # of Minutes Spent Total Time Spent with Patient: Total time spent is greater than 50% in coordination of care (as documented) at patient's floor/unit and/or counseling patient: Coding Level of Care Code 46107 SUB INP/OBS CARE 3/50MIN Diagnoses Persistent atrial fibrillation I48.19 Heart failure with mid-range ejection fraction (HFmEF) I50.22 Moderate mitral regurgitation I34.0 Elevated liver transaminase level R74.01 YASMANY (acute kidney injury) N17.9 Chronic kidney disease, stage 3 N18.30 Hypertension I10
[2023-02-08] MEDS ORDERED: METOPROLOL TARTRATE 25 MG TAB PO ONE (14:30)
[2023-02-08] MEDS: METOPROLOL TARTRATE 50 MG TAB PO SCH (21:27)
[2023-02-08] MEDS: BIMATOPROST 0.01% OP SOLN 2.5 ML BTL OP SCH (21:28)
[2023-02-09 05:06] LABS: Hematocrit (blood only) 33.1 % (42.0-52.0); Mean Corpuscular Hgb Conc 33.2 g/dL (32.0-36.0); Mean Corpuscular Volume 87.3 fL (80.0-100.0); Mean Platelet Volume 11.5 fL (9.4-12.4); Platelet Count 189 K/uL (130-400); RDW Coefficient of Variation 15.7 % (11.5-14.5); RDW Standard Deviation 49.9 fL (36.4-46.3); Red Blood Count 3.79 M/uL (4.70-6.10); White Blood Count 7.11 K/ul (4.8-10.8)
[2023-02-09 05:25] LABS: Albumin Globulin Ratio 1.7 (0.9-2); Albumin Level 3.3 gm/dl (3.4-5.0); BUN Creatinine Ratio 27.5 (10-20); Bilirubin,Total 0.6 mg/dl (0.2-1.0); Calcium 8.1 mg/dl (8.6-10.3); Creatinine Clr Calc Pharmacy 34.1 ml/min; Est GFR (African American) 31.3 ml/min; Globulin 1.9 gm/dl (2.5-4.0); Magnesium 1.8 mg/dl (1.7-2.4); Potassium 3.4 mmol/L (3.5-5.1); Total Protein 5.2 gm/dl (6.0-8.3)
[2023-02-09] MEDS: METOPROLOL TARTRATE 50 MG TAB PO SCH ×3 (05:37→20:52)
[2023-02-09] MEDS ORDERED: POTASSIUM CHLORIDE CRTAB 20 MEQ TABCR PO STA (07:58)
[2023-02-09] MEDS: LANTUS PER UNIT CHARGE SC SCH (08:38)
[2023-02-09] MEDS: INSULIN ASPART PER UNIT CHARGE SC SCH ×4 (08:38→20:51)
[2023-02-09] MEDS: FUROSEMIDE 40 MG/4 ML VIAL IV SCH ×3 (08:38→22:00)
[2023-02-09] MEDS: CHOLECALCIFEROL 1,000 UNITS 25 MCG TAB PO SCH (08:39)
[2023-02-09] MEDS: APIXABAN 2.5 MG TAB PO SCH ×2 (08:39→20:52)
--- NOTE | 2023-02-09 09:15 | Nephrology Progress Note ---
Date of Service February 09, 2023 Assessment & Plan (1) YASMANY (acute kidney injury): Plan: * Nonoliguric YASMANY due to CRS * 02/07/23 Echocardiogram shows drop in LVEF to 35-40% and moderate MR * Urine microscopy is acellular * 02/07/23 Renal US is negative for obstruction * Hold benazepril and metformin for now * Only 700 cc net diuresis last 24 hours. Will increase Furosemide to 40 mg IV TID * Primary service is supplementing serum K. Will order serum K, Mg for am * Monitor UO, volume status, PRP (2) Chronic kidney disease, stage 3: Plan: * CKD attributed to DKD * Baseline creatinine 1.4 mg/dL * Will need outpatient Nephrology with Dr. Witt in [place] (3) Essential hypertension: Plan: * BP is acceptable * Continue to hold Benazepril and HCTZ (4) CHF (congestive heart failure): Plan: * 02/07/23 echocardiogram show LVEF 35-45% w/ mod MR * Metoprolol tartrate for atrial fibrillation rate control (5) PAF (paroxysmal atrial fibrillation): Plan: * On Apixaban, Metoprolol Admission and Anticipated Discharge Date Admission Date: February 07, 2023 Subjective Mr. Plasencia was evaluated in his hospital room this morning. He reports brisk UO in response to IV Furosemide therapy. His breathing is subjectively improved but he notes persistent LE swelling with weeping bullae Review of Systems Constitutional: no fever Eyes: no problem reported Ear, Nose, Mouth, Throat: no problem reported Respiratory: no cough and no dyspnea Cardiovascular: no chest pain Gastrointestinal: no abdominal pain, no nausea, no vomiting and no diarrhea/loose stools Genitourinary: no dysuria or no hematuria Integumentary: no rash Physical Exam Constitutional: not in distress Eyes: PERRL, conjunctivae normal, anicteric sclerae ENMT: external ear and nose normal, oropharynx normal Neck: trachea midline, no thyromegaly Respiratory: normal respiratory effort, lungs clear to auscultation Cardiovascular: Rate/Rhythm: + tachycardic and + irregularly irregular Extremities: + edema (3+ pretibial pitting edema) Gastrointestinal (Abdomen): normal bowel sounds, soft, nontender, no hepatosplenomegaly Neurologic: Speech / Cognition: normal speech and normal cognition Results & Data Vital Signs (Past 12 Hours) Vital Signs Temp Pulse Resp BP Pulse Ox Pulse Ox O2 Del Method 02/09/23 08:00 97 02/09/23 07:51 36.8 C 99 H 20 134/88 97 Room Air 02/09/23 05:35 70 20 120/70 02/09/23 03:00 36.7 C 100 H 17 115/77 95 Room Air 02/08/23 22:59 36.7 C 90 16 116/84 96 Room Air O2 Del Method 02/09/23 08:00 Room Air 02/09/23 07:51 02/09/23 05:35 02/09/23 03:00 02/08/23 22:59 Laboratory Results Laboratory Tests 02/07/23 02/09/23 02/09/23 10:30 04:49 04:49 WBC 7.11 Hgb 11.0 L Hct 33.1 L Plt Count 189 Sodium 137 Potassium 3.4 L D Chloride 102 Carbon Dioxide 26 BUN 61 H Creatinine 2.34 H 2.22 H Glucose 106 H PG Care Time/CCT Total # of Minutes Spent Total Time Spent with Patient: Total time spent is greater than 50% in coordination of care (as documented) at patient's floor/unit and/or counseling patient: Coding Level of Care Code 72330 SUB INP/OBS CARE 3/50MIN Diagnoses YASMANY (acute kidney injury) N17.9 Chronic kidney disease, stage 3 N18.30 Essential hypertension I10 CHF (congestive heart failure) I50.9 PAF (paroxysmal atrial fibrillation) I48.0
[2023-02-09] MEDS: FERROUS SULFATE 325 MG TAB PO SCH (09:31)
--- NOTE | 2023-02-09 09:53 | Cardiology Progress Note ---
Date of Service February 09, 2023 Assessment & Plan (1) Persistent atrial fibrillation: Plan: Ventricular response to atrial fibrillation still suboptimally controlled. Would increase metoprolol to tartrate to 50 mg every 6 hours. Renal function abnormal but appears stable, add digoxin 125 mcg every other day without loading dose. [id number] score is at least 5, continue on apixaban at reduced dose due to advanced age and diminished renal function. (2) Heart failure with mid-range ejection fraction (HFmEF): Plan: Renal function stable, appears euvolemic by neck veins. Breathing better. Would decrease furosemide from 40 mg IV twice daily to 40 mg IV daily. (3) Moderate mitral regurgitation: (4) Elevated liver transaminase level: Plan: Question hepatic congestion versus other etiology, still elevated but stable. (5) YAS[place]Y (acute kidney injury): Plan: Per nephrology. (6) Chronic kidney disease, stage 3: (7) Hypertension: Plan: Normotensive currently. Admission and Anticipated Discharge Date Admission Date: February 07, 2023 Subjective States that he feels much better today, notes no further dyspnea. Minimal change in leg edema. Denies chest pain, palpitations, or lightheadedness. Telemetry shows atrial fibrillation with ventricular rate 110-120 bpm. Physical Exam Physical Exam: Appears comfortable BP normotensive. Pulse 100 bpm and irregular. Skin: Scattered ecchymoses both forearms, no generalized lesions. HEENT: unremarkable. Neck: JVP at the clavicle at 90 degrees, no carotid bruits. Lungs: Mildly diminished breath sounds with few basilar crackles on the left, no wheezing, rhonchi, or accessory muscle use. Cardiac: Faint heart tones, irregular/borderline tachycardic rhythm, no obvious murmur or gallop. Abdomen: benign. Extremities: 2-3+ pretibial pitting edema with marked erythema and weeping areas both lower legs. Neurologic: normal affect and conversation, nonfocal. Results & Data Laboratory Results Sodium 137, tach potassium of 3.4, BUN 61, creatinine 2.22 (2.32 yesterday). PG Care Time/CCT Total # of Minutes Spent Total Time Spent with Patient: Total time spent is greater than 50% in coordination of care (as documented) at patient's floor/unit and/or counseling patient: Coding Level of Care Code 56241 SUB INP/OBS CARE 3/50MIN Diagnoses Persistent atrial fibrillation I48.19 Heart failure with mid-range ejection fraction (HFmEF) I50.22 Moderate mitral regurgitation I34.0 Elevated liver transaminase level R74.01 YASMANY (acute kidney injury) N17.9 Chronic kidney disease, stage 3 N18.30 Hypertension I10
[2023-02-09] MEDS: DIGOXIN 125 MCG in SYRINGE 9.5 ML IV SCH (13:54)
--- NOTE | 2023-02-09 15:12 | Hospitalist Progress Note ---
Date of Service February 09, 2023 Assessment & Plan (1) Persistent atrial fibrillation: (2) Heart failure with mid-range ejection fraction (HFmEF): (3) Moderate mitral regurgitation: (4) Elevated liver transaminase level: (5) YASMANY (acute kidney injury): (6) Chronic kidney disease, stage 3: (7) Hypertension: Plan Chun is an 82 year old man with history of CKD, pAFib (Dx 2 Mo. ago, uncontrolled), anticoagulation (on Eliquis), HTN, and HLD who presented to the ER with increasing dyspnea and an acute loss of energy/fatigue starting on Friday. Patient was admitted for management of acute CHF in the setting of uncontrolled A Fib. Acute systolic congestive heart failure - Patient with evidence of pulmonary edema, small left pleural effusion, JVD, and significant bilateral LE edema (increased over last month) - Patient denies any chest pain, pressure, or angina * No hx of ACS/WV - Echocardiogram * Echo 02/2022: EF 60-65%, no wall motion abnormalities, grade 1 diastolic dysfunction * Echo 02/07/23: EF 35-40%, moderate global hypokinesis of LV, LV mildly dilated, RVSP 30-40 mmHg Labs: 02/07 HS Troponin peaked at 35, BNP 811 H - I/O - Neg 1500ml - Cardiology and Nephrology Consultation: * Continue Diuresis - Dose of furosemide increased to TID per nephro New onset CMP - Tachycardia induced? * Continue to follow - Appreciate Cardiology Recommendations Paroxysmal Atrial Fibrillation - CHADsVASC 5 - Holter Monitor 12/2022: * Primarily NSR, A Fib burden 24% - Cardiology Consultation * Increase Metoprolol to 50 mg q6h * Add Digoxin 125 mcg q48h * Hold Amiodarone d/t concern for hepatic toxicity * Discontinue Aspirin as patient is on Apixaban YASMANY on CKD - Baseline Cr 1.4 - Diabetic CKD, currently 2.22 sec to CRS - Nephrology consultation: * Only 700 cc net diuresis last 24 hours - increase Furosemide to 40 mg IV TID * Continue to hold benazepril and metformin for now * Continue negative fluid balance Transaminitis - Labs: * 02/07 AST/ALT 200/140 H (respectively) * 02/09 AST/ALT 196/145 H (respectively) - Ddx: Hepatic congestion d/t CHF, amiodarone toxicity (discontinued on admission) * Of note, transaminases normal prior to December when Amiodarone started - Liver US: * There is slight prominence of the portal triads. - Follow CMP T2DM w/ Nephropathy (severe) - Metformin held on admission (d/t YASMANY) - HIRAL-I held on admission (d/t YASMANY) - Pioglitazone held on admission (can increase fluid retention) - BSG on presentation 148, goal 110-140 * Weight based basal bolus at this time - 02/07 HbA1c 6.5 HTN - Amlodipine, HCTZ, and Benazepril held on admission - Metoprolol increased to 50 mg q6h - BP remains well controlled (110-120/60-70) - Continue to monitor BP DVT prophylaxis: Anticoagulated on Eliquis CODE STATUS: DNR/DNI Diet: DM 2, low-salt, heart healthy Disposition: PCU for CHF with A-fib Admission and Anticipated Discharge Date Admission Date: February 07, 2023 Supervising Physician Co-Signing Physician Notes Resident Physician Supervision Note: I independently interviewed and examined the patient and verified the kraft history and physical, reviewed labs and image studies and agree with resident findings and care plan. Subjective 02/09: Patient sitting in bedside chair upon arrival. He notes improvement in dyspnea and states that he is not having chest pain or pleuritic pain. Patient is pleased with the improvement in his lower extremity swelling. Patient denies any abdominal discomfort, nausea, emesis, dysuria, or bowel changes. He notes that his fatigue is improving, but he is not yet back to 100%. Physical Exam Physical Exam: Gen: NAD, alert, interactive Neuro: AO x 3, no focal neurologic defects HEENT: NCAT, Supple, no LAD, resolved JVD Resp:Non-labored, no wheezing, bibasilar crackles present CV:irregular rate, irregular rhythm, normal S1/S2, systolic murmur Abd: Soft, non-distended, no TTP, normoactive bowels, no masses Extr: 2+ dp bilaterally, 3+ pitting edema of bilateral LE (to judd), symmetric dark erythema (to mid-calf) bilaterally, superficial blisters and serous drainage present Results & Data Results & Data Vital Signs (Past 12 Hours) Vital Signs Temp Pulse Pulse Resp BP Pulse Ox Pulse Ox 02/09/23 13:54 105 H 115/72 02/09/23 13:54 105 H 02/09/23 12:06 36.4 C L 114 H 18 111/51 L 98 02/09/23 10:10 100 H 02/09/23 09:56 02/09/23 08:00 97 02/09/23 07:51 36.8 C 99 H 20 134/88 97 02/09/23 05:35 70 20 120/70 O2 Del Method O2 Del Method 02/09/23 13:54 02/09/23 13:54 02/09/23 12:06 Room Air 02/09/23 10:10 02/09/23 09:56 Room Air 02/09/23 08:00 Room Air 02/09/23 07:51 Room Air 02/09/23 05:35 Resident Activity Tracking Resident Involvement: Resident Care Provided Care Provided: Adult Hospital Medicine
[2023-02-09] MEDS: BIMATOPROST 0.01% OP SOLN 2.5 ML BTL OP SCH (20:54)
[2023-02-10] MEDS: METOPROLOL TARTRATE 50 MG TAB PO SCH ×3 (02:17→13:12)
[2023-02-10 06:17] LABS: Hematocrit (blood only) 34.4 % (42.0-52.0); Hemoglobin 11.3 g/dl (14.0-18.0); Mean Corpuscular Hemoglobin 28.8 pg (25.0-34.0); Mean Corpuscular Hgb Conc 32.8 g/dL (32.0-36.0); Mean Corpuscular Volume 87.5 fL (80.0-100.0); Mean Platelet Volume 11.5 fL (9.4-12.4); Platelet Count 194 K/uL (130-400); RDW Coefficient of Variation 15.5 % (11.5-14.5); RDW Standard Deviation 49.5 fL (36.4-46.3); Red Blood Count 3.93 M/uL (4.70-6.10); White Blood Count 7.29 K/ul (4.8-10.8)
[2023-02-10 06:30] LABS: Albumin Globulin Ratio 1.6 (0.9-2); Albumin Level 3.1 gm/dl (3.4-5.0); BUN Creatinine Ratio 28.4 (10-20); Bilirubin,Total 0.6 mg/dl (0.2-1.0); Calcium 8.1 mg/dl (8.6-10.3); Creatinine Clr Calc Pharmacy 32.5 ml/min; Est GFR (African American) 30.1 ml/min; Magnesium 1.8 mg/dl (1.7-2.4); Potassium 3.9 mmol/L (3.5-5.1); Total Protein 5.1 gm/dl (6.0-8.3)
--- NOTE | 2023-02-10 07:38 | Hospitalist Progress Note ---
Date of Service February 10, 2023 Assessment & Plan (1) Persistent atrial fibrillation: (2) Heart failure with mid-range ejection fraction (HFmEF): (3) Moderate mitral regurgitation: (4) Elevated liver transaminase level: (5) YASMANY (acute kidney injury): (6) Chronic kidney disease, stage 3: (7) Hypertension: Plan Chun is an 82 year old man with history of CKD, pAFib (Dx 2 Mo. ago, uncontrolled), anticoagulation (on Eliquis), HTN, and HLD who presented to the ER with increasing dyspnea and an acute loss of energy/fatigue starting on Friday. Patient was admitted for management of acute CHF in the setting of uncontrolled A Fib. Acute systolic congestive heart failure * 02/10:Persistent pulmonary edema, decrease in a left pleural effusion, persistent bibasilar opacities which may be related to pulmonary edema. - Echocardiogram * Echo 02/2022: EF 60-65%, no wall motion abnormalities, grade 1 diastolic dysfunction * Echo 02/07/23: EF 35-40%, moderate global hypokinesis of LV, LV mildly dilated, RVSP 30-40 mmHg - I/O - Neg 1645 ml (in last 24h) - Cardiology and Nephrology Consultation: * Continue Diuresis - Continue Furosemide TID per Nephro New onset CMP - Tachycardia induced. Cardio adjusting b blockers. Paroxysmal Atrial Fibrillation - CHADsVASC 5 - Holter Monitor 12/2022: * Primarily NSR, A Fib burden 24% - Cardiology Consultation * Changed Metoprolol tartrate 50 mg q6h to Metoprolol succinate 100 mg PO BID * Continue Digoxin 125 mcg q48h * Hold Amiodarone d/t concern for hepatic toxicity * Discontinue Aspirin as patient is on Apixaban YAS[place]Y on CKD - Baseline Cr 1.4 - Diabetic CKD, currently 2.29 sec to CRS - Nephrology consultation: * Continue Furosemide 40 mg IV TID * Continue to hold benazepril and metformin for now * Continue negative fluid balance Transaminitis - Labs: * 02/07 AST/ALT 200/140 H (respectively) * 02/10 AST/ALT 208/156 H (respectively) - Ddx: Hepatic congestion d/t CHF, amiodarone toxicity (discontinued on admission) * Of note, transaminases normal prior to December when Amiodarone started - Liver US: * There is slight prominence of the portal triads. - Follow CMP T2DM w/ Nephropathy (severe) - Metformin held on admission (d/t YASMANY) - Pioglitazone held on admission (can increase fluid retention) - will d/c on discharge - BSG on presentation 148, goal 110-140 * Weight based basal bolus at this time - 02/07 HbA1c 6.5 HTN - Amlodipine, HCTZ, and Benazepril held on admission - Metoprolol succinate now 100 mg BID - BP remains well controlled (110-120/60-70) - Continue to monitor BP DVT prophylaxis: Anticoagulated on Eliquis CODE STATUS: DNR/DNI Diet: DM 2, low-salt, heart healthy Disposition: PCU for CHF with A-fib Admission and Anticipated Discharge Date Admission Date: February 07, 2023 Supervising Physician Co-Signing Physician Notes Resident Physician Supervision Note: I independently interviewed and examined the patient and verified the kraft history and physical, reviewed labs and image studies and agree with resident findings and care plan. Subjective 02/10: Patient was comfortable in bed upon arrival. He notes ongoing shortness of breath when laying in bed, but states that he feels much improved when he is up in the chair. He denies any chest pain, pleuritic pain, abdominal discomfort, headaches, lightheadedness, or worsening fatigue. He notes no dysuria or denita wel/bladder changes. He feels as though his LE swelling is muhc improved, but notes that he still has blisters and ongoing fluid drainage. Physical Exam Physical Exam: Gen: NAD, alert, interactive Neuro: AO x 3, no focal neurologic defects HEENT: NCAT, Supple, no LAD, resolved JVD Resp:Non-labored, no wheezing, bibasilar crackles present (L>R) CV:irregular rate, irregular rhythm, normal S1/S2, no MRG Abd: Soft, non-distended, no TTP, normoactive bowels, no masses Extr: 2+ dp bilaterally, 2+ pitting edema of bilateral LE (to judd), symmetric dark erythema (to mid-calf) bilaterally, superficial blisters and serous drai nage present Results & Data Results & Data Vital Signs (Past 12 Hours) Vital Signs Temp Pulse Pulse Resp BP Pulse Ox O2 Del Method 02/10/23 06:45 88 126/78 02/10/23 03:00 36.6 C 85 18 105/63 95 Room Air 02/10/23 02:15 91 H 113/62 02/09/23 22:02 91 H 02/09/23 21:12 Room Air 02/09/23 23:00 36.4 C L 80 19 114/77 96 Room Air Resident Activity Tracking Resident Involvement: Resident Care Provided Care Provided: Adult Hospital Medicine
--- NOTE | 2023-02-10 07:57 | XRay Report ---
XR chest 1V portable CLINICAL HISTORY: Congestive heart failure. COMPARISON STUDY: Chest radiograph February 07, 2023. FINDINGS: There is no pneumothorax. A small left pleural effusion has decreased in size. Bibasilar op acities persist with mild interstitial thickening. Cardiomegaly is unchanged. IMPRESSION: 1. Persistent interstitial thickening suggestive of pulmonary edema. 2. Decrease in a left pleural effusion. 3. Persistent bibasilar opacities which may be related to pulmonary edema. A superimposed infectious process could appear similar. Radiographic follow-up to ensure resolution is recommended. ACT 112: Negative or not required by law. Electronically signed by: Robert Grissom M.D. 02/10/2023 7:55 AM
[2023-02-10] MEDS: FUROSEMIDE 40 MG/4 ML VIAL IV SCH ×3 (08:23→20:33)
[2023-02-10] MEDS: APIXABAN 2.5 MG TAB PO SCH ×2 (08:23→20:35)
[2023-02-10] MEDS: CHOLECALCIFEROL 1,000 UNITS 25 MCG TAB PO SCH (08:24)
[2023-02-10] MEDS: INSULIN ASPART PER UNIT CHARGE SC SCH ×4 (08:29→20:32)
[2023-02-10] MEDS: LANTUS PER UNIT CHARGE SC SCH (08:29)
[2023-02-10] MEDS ORDERED: CYANOCOBALAMIN (B-12) 2,500 MCG TABLET PO SCH (09:00)
--- NOTE | 2023-02-10 09:05 | Nephrology Progress Note ---
Date of Service February 10, 2023 Assessment & Plan (1) YASMANY (acute kidney injury): Plan: * Nonoliguric YASMANY due to CRS * 02/07/23 Echocardiogram shows drop in LVEF to 35-40% and moderate MR * Urine microscopy is acellular * 02/07/23 Renal US is negative for obstruction * Hold benazepril and metformin for now * Kidney function is stable at this time. Only 745 cc net diuresis yesterday * CXR shows persistent CHF, but pleural effusion is improved * Patient still has tense LE swelling w/ weeping bullae * Continue Furosemide 40 mg IV TID * Monitor UO, volume status, PRP (2) Chronic kidney disease, stage 3: Plan: * CKD attributed to DKD * Baseline creatinine 1.4 mg/dL * Will need outpatient Nephrology with Dr. Witt in [place] (3) Essential hypertension: Plan: * BP is acceptable * Continue to hold Benazepril and HCTZ (4) CHF (congestive heart failure): Plan: * 02/07/23 echocardiogram show LVEF 35-45% w/ mod MR * Metoprolol tartrate for atrial fibrillation rate control (5) PAF (paroxysmal atrial fibrillation): Plan: * On Apixaban, Metoprolol Admission and Anticipated Discharge Date Admission Date: February 07, 2023 Subjective Mr. Plasencia was evaluated in his hospital room this morning. He reports brisk UO in response to IV Furosemide therapy. His breathing is subjectively improved but he notes persistent LE swelling with weeping bullae Review of Systems Constitutional: no fever Eyes: no problem reported Ear, Nose, Mouth, Throat: no problem reported Respiratory: no cough and no dyspnea Cardiovascular: no chest pain Gastrointestinal: no abdominal pain, no nausea, no vomiting and no diarrhea/loose stools Genitourinary: no dysuria or no hematuria Integumentary: no rash Physical Exam Constitutional: not in distress Eyes: PERRL, conjunctivae normal, anicteric sclerae ENMT: external ear and nose normal, oropharynx normal Neck: trachea midline, no thyromegaly Respiratory: normal respiratory effort, lungs clear to auscultation Cardiovascular: Rate/Rhythm: regular rhythm, + tachycardic and + irregularly irregular Extremities: + edema (3+ pretibial pitting edema, weeping bullae) Gastrointestinal (Abdomen): normal bowel sounds, soft, nontender, no hepatosplenomegaly Neurologic: Speech / Cognition: normal speech and normal cognition Results & Data Vital Signs (Past 12 Hours) Vital Signs Temp Pulse Pulse Resp BP Pulse Ox Pulse Ox 02/10/23 08:00 97 02/10/23 07:54 36.6 C 105 H 20 136/79 94 02/10/23 06:45 88 126/78 02/10/23 03:00 36.6 C 85 18 105/63 95 02/10/23 02:15 91 H 113/62 02/09/23 22:02 91 H 02/09/23 21:12 02/09/23 23:00 36.4 C L 80 19 114/77 96 O2 Del Method O2 Del Method 02/10/23 08:00 Room Air 02/10/23 07:54 Room Air 02/10/23 06:45 02/10/23 03:00 Room Air 02/10/23 02:15 02/09/23 22:02 02/09/23 21:12 Room Air 02/09/23 23:00 Room Air Laboratory Results Laboratory Tests 02/10/23 02/10/23 05:44 05:44 WBC 7.29 Hgb 11.3 L Hct 34.4 L Plt Count 194 Sodium 138 Potassium 3.9 Chloride 102 Carbon Dioxide 29 BUN 65 H Creatinine 2.29 H Glucose 92 Calcium 8.1 L Magnesium 1.8 Total Bilirubin 0.6 AST 208 H ALT 156 H Alkaline Phosphatase 56 Albumin 3.1 L Laboratory Tests 02/10/23 05:44 Magnesium 1.8 PG Care Time/CCT Total # of Minutes Spent Total Time Spent with Patient: Total time spent is greater than 50% in coordination of care (as documented) at patient's floor/unit and/or counseling patient: Coding Level of Care Code 39092 SUB INP/OBS CARE 3/50MIN Diagnoses YASMANY (acute kidney injury) N17.9 Chronic kidney disease, stage 3 N18.30 Essential hypertension I10 CHF (congestive heart failure) I50.9 PAF (paroxysmal atrial fibrillation) I48.0
[2023-02-10] MEDS: FERROUS SULFATE 325 MG TAB PO SCH (09:39)
--- NOTE | 2023-02-10 12:35 | Cardiology Progress Note ---
Date of Service February 10, 2023 Assessment & Plan (1) Persistent atrial fibrillation: Plan: Ventricular response to atrial fibrillation markedly improved, near goal of 80- 100 bpm. Would change metoprolol to tartrate to metoprolol succinate 100 mg twice daily for ease of dosing as outpatient. Continue digoxin 125 mcg every other day. [id number] score is at least 5, continue on apixaban at reduced dose due to advanced age and diminished renal function. (2) Heart failure with mid-range ejection fraction (HFmEF): Plan: Still with mild morning dyspnea and chest x-ray with improving effusion but persistent pulmonary congestion. Neck veins suggest he may be approaching euvolemia. Reasonable to continue aggressive diuresis while inpatient while closely monitoring renal function. (3) Moderate mitral regurgitation: (4) Elevated liver transaminase level: (5) YASMANY (acute kidney injury): Plan: Per nephrology. (6) Chronic kidney disease, stage 3: (7) Hypertension: Plan: Normotensive currently. Admission and Anticipated Discharge Date Admission Date: February 07, 2023 Subjective [place] a little short of breath when he awoke today, but no further dyspnea after getting out of bed. Comfortable currently. No chest pain, palpitations, or lightheadedness. Weight down 1 pound. I/O -820 mL. Telemetry showed atrial fibrillation with ventricular rate 80-105 bpm. Physical Exam Physical Exam: Appears comfortable BP normotensive. Pulse 90 bpm and irregular. Skin: Scattered ecchymoses both forearms, no generalized lesions. HEENT: unremarkable. Neck: JVP just above the clavicle at 90 degrees, no carotid bruits. Lungs: Dullness left base, few basilar crackles on the left, no wheezing, rhonchi, or accessory muscle use. Cardiac: Faint heart tones, irregular/borderline tachycardic rhythm, no obvious murmur or gallop. Abdomen: benign. Extremities: 2+ pretibial pitting edema with marked erythema and weeping areas both lower legs. Neurologic: normal affect and conversation, nonfocal. Results & Data Laboratory Results Normal electrolytes, BUN 25, creatinine 2.29 (2.22 yesterday) Diagnostic Findings Chest x-ray showed decrease in left pleural effusion but persistent pulmonary congestion. PG Care Time/CCT Total # of Minutes Spent Total Time Spent with Patient: Total time spent is greater than 50% in coordination of care (as documented) at patient's floor/unit and/or counseling patient: Coding Level of Care Code 38860 SUB INP/OBS CARE 2MIN Diagnoses Persistent atrial fibrillation I48.19 Heart failure with mid-range ejection fraction (HFmEF) I50.22 Moderate mitral regurgitation I34.0 Elevated liver transaminase level R74.01 YASMANY (acute kidney injury) N17.9 Chronic kidney disease, stage 3 N18.30 Hypertension I10
[2023-02-10] MEDS: BIMATOPROST 0.01% OP SOLN 2.5 ML BTL OP SCH (20:35)
[2023-02-10] MEDS: METOPROLOL SUCC 50MG EXT REL TAB PO SCH (20:36)
[2023-02-11 06:24] LABS: Hematocrit (blood only) 34.4 % (42.0-52.0); Hemoglobin 11.2 g/dl (14.0-18.0); Mean Corpuscular Hemoglobin 28.7 pg (25.0-34.0); Mean Corpuscular Hgb Conc 32.6 g/dL (32.0-36.0); Mean Corpuscular Volume 88.2 fL (80.0-100.0); Mean Platelet Volume 11.9 fL (9.4-12.4); Platelet Count 195 K/uL (130-400); RDW Coefficient of Variation 15.6 % (11.5-14.5); RDW Standard Deviation 50.2 fL (36.4-46.3); White Blood Count 7.69 K/ul (4.8-10.8)
[2023-02-11 06:44] LABS: Albumin Globulin Ratio 1.6 (0.9-2); Albumin Level 3.1 gm/dl (3.4-5.0); BUN Creatinine Ratio 29.9 (10-20); Bilirubin,Total 0.6 mg/dl (0.2-1.0); Calcium 8.2 mg/dl (8.6-10.3); Creatinine Clr Calc Pharmacy 30.2 ml/min; Est GFR (African American) 27.9 ml/min; Est GFR (Non-African American) 24.1 ml/min; Potassium 3.6 mmol/L (3.5-5.1); Total Protein 5.1 gm/dl (6.0-8.3)
[2023-02-11] MEDS: FERROUS SULFATE 325 MG TAB PO SCH (07:27)
[2023-02-11] MEDS: METOPROLOL SUCC 50MG EXT REL TAB PO SCH ×2 (07:28→20:36)
[2023-02-11] MEDS: CHOLECALCIFEROL 1,000 UNITS 25 MCG TAB PO SCH (07:28)
[2023-02-11] MEDS: APIXABAN 2.5 MG TAB PO SCH ×2 (07:29→20:36)
[2023-02-11] MEDS: FUROSEMIDE 40 MG/4 ML VIAL IV SCH ×3 (07:33→20:35)
--- NOTE | 2023-02-11 07:36 | Hospitalist Progress Note ---
Date of Service February 11, 2023 Assessment & Plan (1) Persistent atrial fibrillation: (2) Heart failure with mid-range ejection fraction (HFmEF): (3) Moderate mitral regurgitation: (4) Elevated liver transaminase level: (5) YASMANY (acute kidney injury): (6) Chronic kidney disease, stage 3: (7) Hypertension: Plan Chun is an 82 year old man with history of CKD, pAFib (Dx 2 Mo. ago, uncontrolled), anticoagulation (on Eliquis), HTN, and HLD who presented to the ER with increasing dyspnea and an acute loss of energy/fatigue starting on Friday. Patient was admitted for management of acute CHF in the setting of uncontrolled A Fib. Acute systolic congestive heart failure * 02/10:CXR - Persistent pulmonary edema, decrease in a left pleural effusion, persistent bibasilar opacities which may be related to pulmonary edema. - Echocardiogram * Echo 02/2022: EF 60-65%, no wall motion abnormalities, grade 1 diastolic dysfunction * Echo 02/07/23: EF 35-40%, moderate global hypokinesis of LV, LV mildly dilated, RVSP 30-40 mmHg - I/O - Neg 1305 ml (in last 24h) - Cardiology and Nephrology Consultation: * Continue Furosemide TID per Nephro New onset CMP - Tachycardia induced. Cardio adjusting b blockers. Paroxysmal Atrial Fibrillation - CHADsVASC 5 - Holter Monitor 12/2022: * Primarily NSR, A Fib burden 24% - Cardiology Consultation * Increase Metoprolol succinate to 150 mg PO BID * Increase Digoxin 125 mcg q24h from 48hrs. Level in am * Hold Amiodarone d/t concern for hepatic toxicity * Discontinue Aspirin as patient is on Apixaban YASMANY on CKD - Baseline Cr 1.4 - Diabetic CKD, currently 2.4 sec to CRS/diuresis - Nephrology consultation: * Continue Furosemide 40 mg IV TID * Continue to hold benazepril and metformin for now * Continue negative fluid balance * Small rise in creatinine acceptable to achieve appropriate diuresis Transaminitis - Labs: * 02/11 AST/ALT 222/170 H (respectively) - Ddx: Hepatic congestion d/t CHF, amiodarone toxicity (discontinued on admission) * Of note, transaminases normal prior to December when Amiodarone started - Liver US: * There is slight prominence of the portal triads. - Follow CMP T2DM w/ Nephropathy (severe) - Metformin held on admission (d/t YASMANY) - Pioglitazone held on admission (can increase fluid retention) - will d/c on discharge - BSG on presentation 148, goal 110-140 * Weight based basal bolus at this time - 02/07 HbA1c 6.5 HTN - Amlodipine, HCTZ, and Benazepril held on admission - Metoprolol succinate now 100 mg BID - BP remains well controlled (110-120/60-70) - Continue to monitor BP DVT prophylaxis: Anticoagulated on Eliquis CODE STATUS: DNR/DNI Diet: DM 2, low-salt, heart healthy Disposition: PCU for CHF with A-fib Admission and Anticipated Discharge Date Admission Date: February 07, 2023 Supervising Physician Co-Signing Physician Notes Resident Physician Supervision Note: I independently interviewed and examined the patient and verified the kraft history and physical, reviewed labs and image studies and agree with resident findings and care plan. Subjective 02/11: Patient continues to have dyspnea when flat, but states that he is feeling 75% back to normal when he is sitting upright. Patient is pleased with the decrease in swelling in his legs. He denies any chest pain, pleuritic pain, abdominal discomfort, headaches, or lightheadedness. Patient notes that he is urinating very frequently but is not having dysuria. Physical Exam Physical Exam: Gen: NAD, alert, interactive Neuro: AO x 3, no focal neurologic defects HEENT: NCAT, Supple, no LAD, resolved JVD Resp:Non-labored, no wheezing, faint bibasilar crackles present (L>R) CV:irregular rate, irregular rhythm, normal S1/S2, no MRG Abd: Soft, non-distended, no TTP, normoactive bowels, no masses Extr: 2+ dp bilaterally, 2+ pitting edema of bilateral LE (to judd), symmetric dark erythema (to mid-calf) bilaterally, superficial blisters and serous drainage present (diminished) Results & Data Results & Data Vital Signs (Past 12 Hours) Vital Signs Temp Pulse Pulse Resp BP Pulse Ox O2 Del Method 02/11/23 07:11 Room Air 02/11/23 07:01 103 H 02/11/23 03:00 36.5 C 100 H 16 123/76 95 Room Air 02/10/23 22:00 102 H 02/10/23 20:00 Room Air 02/10/23 23:00 36.6 C 99 H 18 121/78 92 Room Air 02/10/23 20:30 101 H 114/73 Resident Activity Tracking Resident Involvement: Resident Care Provided Care Provided: Adult Hospital Medicine
[2023-02-11] MEDS: INSULIN ASPART PER UNIT CHARGE SC SCH ×4 (08:01→20:35)
--- NOTE | 2023-02-11 09:05 | Nephrology Progress Note ---
Date of Service February 11, 2023 Assessment & Plan (1) YASMANY (acute kidney injury): Plan: * Nonoliguric YASMANY due to CRS * 02/07/23 Echocardiogram shows drop in LVEF to 35-40% and moderate MR * Urine microscopy is acellular * 02/07/23 Renal US is negative for obstruction * Hold benazepril and metformin for now * Cr remains 2.2-2.4. May need to accept mild increase in Cr to allow diuresis and alleviate tense LE swelling * Net 1 L diuresis overnight, total 4L diuresis since admission. Continue Furosemide 40 mg IV TID * Will transition to Bumex 1 mg po BID-TID once discharge is anticipated * Monitor UO, volume status, PRP (2) Chronic kidney disease, stage 3: Plan: * CKD attributed to DKD * Baseline creatinine 1.4 mg/dL * Will need outpatient Nephrology with Dr. Witt in [place] (3) Essential hypertension: Plan: * BP is acceptable * Continue to hold Benazepril and HCTZ (4) CHF (congestive heart failure): Plan: * 02/07/23 echocardiogram show LVEF 35-45% w/ mod MR * Metoprolol tartrate for atrial fibrillation rate control (5) PAF (paroxysmal atrial fibrillation): Plan: * On Apixaban, Metoprolol Admission and Anticipated Discharge Date Admission Date: February 07, 2023 Subjective Mr. Plasencia was evaluated in his hospital room this morning. He still has tense LE edema with weeping bullae. He notes that as outpatient he used compression stockings but has never had weeping bullae in the past Review of Systems Constitutional: no fever Eyes: no problem reported Ear, Nose, Mouth, Throat: no problem reported Respiratory: no cough and no dyspnea Cardiovascular: no chest pain Gastrointestinal: no abdominal pain, no nausea, no vomiting and no diarrhea/loose stools Genitourinary: no dysuria or no hematuria Integumentary: no rash Physical Exam Constitutional: not in distress Eyes: PERRL, conjunctivae normal, anicteric sclerae ENMT: external ear and nose normal, oropharynx normal Neck: trachea midline, no thyromegaly Respiratory: normal respiratory effort, lungs clear to auscultation Cardiovascular: Rate/Rhythm: regular rhythm, + tachycardic and + irregularly irregular Extremities: + edema (3+ pretibial pitting edema, weeping bullae) Gastrointestinal (Abdomen): normal bowel sounds, soft, nontender, no hepatosplenomegaly Neurologic: Speech / Cognition: normal speech and normal cognition Results & Data Vital Signs (Past 12 Hours) Vital Signs Temp Pulse Pulse Resp BP Pulse Ox O2 Del Method 02/11/23 08:01 36.6 C 115 H 20 124/79 97 Room Air 02/11/23 07:11 Room Air 02/11/23 07:01 103 H 02/11/23 03:00 36.5 C 100 H 16 123/76 95 Room Air 02/10/23 22:00 102 H 02/10/23 23:00 36.6 C 99 H 18 121/78 92 Room Air Laboratory Results Laboratory Tests 02/11/23 02/11/23 05:45 05:45 WBC 7.69 Hgb 11.2 L Hct 34.4 L Plt Count 195 Sodium 138 Potassium 3.6 Chloride 100 Carbon Dioxide 30 BUN 73 H Creatinine 2.44 H Glucose 99 PG Care Time/CCT Total # of Minutes Spent Total Time Spent with Patient: Total time spent is greater than 50% in coordination of care (as documented) at patient's floor/unit and/or counseling patient: Coding Level of Care Code 51982 SUB INP/OBS CARE 3/50MIN Diagnoses YASMANY (acute kidney injury) N17.9 Chronic kidney disease, stage 3 N18.30 Essential hypertension I10 CHF (congestive heart failure) I50.9 PAF (paroxysmal atrial fibrillation) I48.0
[2023-02-11] MEDS: DIGOXIN 125 MCG in SYRINGE 9.5 ML IV SCH (12:22)
--- NOTE | 2023-02-11 12:32 | Cardiology Progress Note ---
Date of Service February 11, 2023 Assessment & Plan (1) Persistent atrial fibrillation: Plan: Still with above-goal ventricular response rate to his atrial fibrillation. Give additional metoprolol succinate 50 mg now and increase metoprolol succinate dose to 150 mg twice daily. Amlodipine is on hold, would discontinue this since it likely will not be necessary given the vasopressor effects of the high dose of beta-stephanie he is requiring for rate control. Increase digoxin to 125 mcg daily. This can be given orally and does not need to be given IV. Check digoxin level tomorrow. [id number] score is at least 5, continue on apixaban at reduced dose due to advanced age and diminished renal function. (2) Heart failure with mid-range ejection fraction (HFmEF): Plan: Feels much better, appears euvolemic by neck veins, leg edema may take some time to resolve. BUN/creatinine increasing, defer to nephrology regarding diuretic but may need to reduce rate of diuresis soon. (3) Moderate mitral regurgitation: (4) Elevated liver transaminase level: (5) YASMANY (acute kidney injury): Plan: Per nephrology. (6) Chronic kidney disease, stage 3: (7) Hypertension: Admission and Anticipated Discharge Date Admission Date: February 07, 2023 Subjective Feels remarkably better today, no dyspnea, chest discomfort, subjective palpitations, or lightheadedness. Telemetry continues to show atrial fibrillation with suboptimally controlled ventricular rate (100-110 bpm). Physical Exam Physical Exam: Appears comfortable BP mildly hypotensive (97/59 mmHg) Pulse 100 bpm and irregular. Skin: Scattered ecchymoses both forearms, no generalized lesions. HEENT: unremarkable. Neck: JVP just at the clavicle at 90 degrees, no carotid bruits. Lungs: Dullness left base, clear overall, no wheezing, rhonchi, or accessory muscle use. Cardiac: Faint heart tones, irregular/borderline tachycardic rhythm, no obvious murmur or gallop. Abdomen: benign. Extremities: 1-2+ pretibial pitting edema with marked erythema and weeping areas both lower legs. Neurologic: normal affect and conversation, nonfocal. Results & Data Vital Signs (Past 12 Hours) Vital Signs Temp Pulse Pulse Resp BP Pulse Ox O2 Del Method 02/11/23 11:12 98.6 F 123 H 20 97/59 L 98 Room Air 02/11/23 08:01 97.9 F 115 H 20 124/79 97 Room Air 02/11/23 07:11 Room Air 02/11/23 07:01 103 H 02/11/23 03:00 97.7 F 100 H 16 123/76 95 Room Air Laboratory Results Normal electrolytes, BUN 73 (65 yesterday), creatinine 2.44 (2.29 yesterday) PG Care Time/CCT Total # of Minutes Spent Total Time Spent with Patient: Total time spent is greater than 50% in coordination of care (as documented) at patient's floor/unit and/or counseling patient: Coding Level of Care Code 52363 SUB INP/OBS CARE 3/50MIN Diagnoses Persistent atrial fibrillation I48.19 Heart failure with mid-range ejection fraction (HFmEF) I50.22 Moderate mitral regurgitation I34.0 Elevated liver transaminase level R74.01 YASMANY (acute kidney injury) N17.9 Chronic kidney disease, stage 3 N18.30 Hypertension I10
[2023-02-11] MEDS: BIMATOPROST 0.01% OP SOLN 2.5 ML BTL OP SCH (20:35)
[2023-02-12 06:15] LABS: Hematocrit (blood only) 33.1 % (42.0-52.0); Mean Corpuscular Hemoglobin 28.8 pg (25.0-34.0); Mean Corpuscular Hgb Conc 33.2 g/dL (32.0-36.0); Mean Corpuscular Volume 86.6 fL (80.0-100.0); Mean Platelet Volume 11.4 fL (9.4-12.4); Platelet Count 181 K/uL (130-400); RDW Coefficient of Variation 15.7 % (11.5-14.5); RDW Standard Deviation 49.1 fL (36.4-46.3); Red Blood Count 3.82 M/uL (4.70-6.10)
[2023-02-12 06:31] LABS: Albumin Globulin Ratio 1.6 (0.9-2); BUN Creatinine Ratio 31.1 (10-20); Bilirubin,Total 0.6 mg/dl (0.2-1.0); Calcium 8.2 mg/dl (8.6-10.3); Creatinine Clr Calc Pharmacy 28.7 ml/min; Est GFR (African American) 26.2 ml/min; Est GFR (Non-African American) 22.6 ml/min; Globulin 1.9 gm/dl (2.5-4.0); Potassium 4.1 mmol/L (3.5-5.1); Total Protein 4.9 gm/dl (6.0-8.3)
--- NOTE | 2023-02-12 07:10 | Hospitalist Progress Note ---
Date of Service February 12, 2023 Assessment & Plan (1) Persistent atrial fibrillation: (2) Heart failure with mid-range ejection fraction (HFmEF): (3) Moderate mitral regurgitation: (4) Elevated liver transaminase level: (5) YASMANY (acute kidney injury): (6) Chronic kidney disease, stage 3: (7) Hypertension: Plan Chun is an 82 year old man with history of CKD, pAFib (Dx 2 Mo. ago, uncontrolled), anticoagulation (on Eliquis), HTN, and HLD who presented to the ER with increasing dyspnea and an acute loss of energy/fatigue starting on Friday. Patient was admitted for management of acute CHF in the setting of uncontrolled A Fib. Acute systolic congestive heart failure * 02/10:CXR - Persistent pulmonary edema, decrease in a left pleural effusion, persistent bibasilar opacities which may be related to pulmonary edema. - Echocardiogram * Echo 02/2022: EF 60-65%, no wall motion abnormalities, grade 1 diastolic dysfunction * Echo 02/07/23: EF 35-40%, moderate global hypokinesis of LV, LV mildly dilated, RVSP 30-40 mmHg - I/O - Neg 512 ml (in last 24h) - Cardiology and Nephrology Consultation: * IV diuresis held today d/t evidence of intravascular volume contraction and rising creatinine * Recommend hospitalization until creatinine stabilizes, if Cr unchanged in am, will transition to Bumex 1 mg po BID New onset CMP - Tachycardia induced. Cardio adjusting b blockers. Paroxysmal Atrial Fibrillation - CHADsVASC 5 - Holter Monitor 12/2022: * Primarily NSR, A Fib burden 24% - Cardiology Consultation * Increase Metoprolol succinate to 150 mg PO BID * Increase Digoxin 125 mcg q24h from 48hrs. Level in am * Hold Amiodarone d/t concern for hepatic toxicity * Discontinue Aspirin as patient is on Apixaban YASMANY on CKD - Baseline Cr 1.4 - Diabetic CKD, currently 2.57 sec to CRS/diuresis - Nephrology consultation: * Discontinue Furosemide 40 mg IV TID * Continue to hold benazepril and metformin for now * Continue to follow fluid balance * Continue to monitor inpatient until creatinine stabilizes Transaminitis - Labs: * 02/12 AST/ALT 222/174 H (respectively) - Ddx: Hepatic congestion d/t CHF, amiodarone toxicity (discontinued on admission) * Of note, transaminases normal prior to December when Amiodarone started - Liver US: * There is slight prominence of the portal triads. - Follow CMP T2DM w/ Nephropathy (severe) - Metformin held on admission (d/t YASMANY) - Pioglitazone held on admission (can increase fluid retention) - will d/c on discharge - BSG on presentation 148, goal 110-140 * Weight based basal bolus at this time - 02/07 HbA1c 6.5 HTN - Amlodipine, HCTZ, and Benazepril held on admission - Metoprolol succinate now 100 mg BID - BP remains well controlled (110-120/60-70) - Continue to monitor BP DVT prophylaxis: Anticoagulated on Eliquis CODE STATUS: DNR/DNI Diet: DM 2, low-salt, heart healthy Disposition: PCU for CHF with A-fib, plans to discharge with HH/PT, patient declines recommended inpatient rehab Admission and Anticipated Discharge Date Admission Date: February 07, 2023 Supervising Physician Co-Signing Physician Notes Resident Physician Supervision Note: I independently interviewed and examined the patient and verified the kraft history and physical, reviewed labs and image studies and agree with resident findings and care plan. Subjective 02/12: Patient notes today that his dyspnea is resolved, he also notes that his fatigue has resolved. He is pleased with the ongoing improvement in his LE edema. Chun denies any chest pain, pleuritic pain, headaches, or lightheadedness. He continues to urinate frequently via urinal w/o dysuria. Physical Exam Physical Exam: Gen: NAD, alert, interactive Neuro: AO x 3, no focal neurologic defects HEENT: NCAT, Supple, no LAD, resolved JVD Resp:Non-labored, no wheezing, bibasilar crackles (resolved) CV:irregular rate, irregular rhythm, normal S1/S2, no MRG Abd: Soft, non-distended, no TTP, normoactive bowels, no masses Extr: 2+ dp bilaterally, 2+ pitting edema of bilateral LE (to judd), symmetric dark erythema (to mid-calf) bilaterally, superficial blisters and serous drainage present (diminished) Results & Data Results & Data Vital Signs (Past 12 Hours) Vital Signs Temp Pulse Pulse Resp BP Pulse Ox O2 Del Method 02/11/23 22:05 83 02/12/23 02:48 36.3 C L 91 H 20 109/73 98 Room Air 02/11/23 22:46 36.5 C 92 H 20 100/69 96 Room Air Resident Activity Tracking Resident Involvement: Resident Care Provided Care Provided: Adult Hospital Medicine
[2023-02-12] MEDS: INSULIN ASPART PER UNIT CHARGE SC SCH ×4 (08:17→20:52)
[2023-02-12] MEDS: APIXABAN 2.5 MG TAB PO SCH ×2 (08:18→20:52)
[2023-02-12] MEDS: FERROUS SULFATE 325 MG TAB PO SCH (08:18)
[2023-02-12] MEDS: METOPROLOL SUCC 50MG EXT REL TAB PO SCH ×2 (08:19→20:53)
[2023-02-12] MEDS: CHOLECALCIFEROL 1,000 UNITS 25 MCG TAB PO SCH (08:19)
--- NOTE | 2023-02-12 08:57 | Nephrology Progress Note ---
Date of Service February 12, 2023 Assessment & Plan (1) YASMANY (acute kidney injury): Plan: * Nonoliguric YASMANY due to CRS * 02/07/23 Echocardiogram shows drop in LVEF to 35-40% and moderate MR * Urine microscopy is acellular * 02/07/23 Renal US is negative for obstruction * Hold benazepril and metformin for now * Net 1.3 L diuresis overnight, total 4.6 L diuresis since admission * Cr has risen to 2.5. Patient is developing intravascular volume contraction. Will stop IV diuretic therapy * Recommend hospitalization until creatinine stabilizes. If Cr unchanged in am, will transition to Bumex 1 mg po BID * Monitor UO, volume status, PRP (2) Chronic kidney disease, stage 3: Plan: * CKD attributed to DKD * Baseline creatinine 1.4 mg/dL * Will need outpatient Nephrology with Dr. Witt in [place] (3) Essential hypertension: Plan: * BP is acceptable off Benazepril, Amlodipine and HCTZ * Recommend avoiding Amlodipine as this may have contributed to LE swelling * As kidney function stabilizes, if BP increases would consider ARB + loop diuretic for BP management (4) CHF (congestive heart failure): Plan: * 02/07/23 echocardiogram show LVEF 35-45% w/ mod MR * Metoprolol tartrate for atrial fibrillation rate control (5) PAF (paroxysmal atrial fibrillation): Plan: * On Apixaban, Metoprolol (6) Diabetes mellitus: Plan: * As outpatient, will need to consider adding SGLT2i therapy Admission and Anticipated Discharge Date Admission Date: February 07, 2023 Subjective Mr. Plasencia was evaluated in his hospital room this morning. His LE edema has improved and the weeping has decreased. He now feels that he will again be able to wear compression stockings. Review of Systems Constitutional: no fever Eyes: no problem reported Ear, Nose, Mouth, Throat: no problem reported Respiratory: no cough and no dyspnea Cardiovascular: no chest pain Gastrointestinal: no abdominal pain, no nausea, no vomiting and no diarrhea/loose stools Genitourinary: no dysuria or no hematuria Integumentary: no rash Physical Exam Constitutional: not in distress Eyes: PERRL, conjunctivae normal, anicteric sclerae ENMT: external ear and nose normal, oropharynx normal Neck: trachea midline, no thyromegaly Respiratory: normal respiratory effort, lungs clear to auscultation Cardiovascular: Rate/Rhythm: regular rhythm, + tachycardic and + irregularly irregular Extremities: + edema (1+ pretibial pitting edema) Gastrointestinal (Abdomen): normal bowel sounds, soft, nontender, no hepatosplenomegaly Neurologic: Speech / Cognition: normal speech and normal cognition Results & Data Vital Signs (Past 12 Hours) Vital Signs Temp Pulse Pulse Resp BP Pulse Ox O2 Del Method 02/12/23 07:25 36.8 C 75 18 122/68 96 Room Air 02/11/23 22:05 83 02/12/23 02:48 36.3 C L 91 H 20 109/73 98 Room Air 02/11/23 22:46 36.5 C 92 H 20 100/69 96 Room Air Laboratory Results Laboratory Tests 02/12/23 02/12/23 05:54 05:54 WBC 7.00 Hgb 11.0 L Hct 33.1 L Plt Count 181 Sodium 138 Potassium 4.1 Chloride 100 Carbon Dioxide 31 BUN 80 H Creatinine 2.57 H Glucose 101 H PG Care Time/CCT Total # of Minutes Spent Total Time Spent with Patient: Total time spent is greater than 50% in coordination of care (as documented) at patient's floor/unit and/or counseling patient: Coding Level of Care Code 97946 SUB INP/OBS CARE 3/50MIN Diagnoses YASMANY (acute kidney injury) N17.9 Chronic kidney disease, stage 3 N18.30 Essential hypertension I10 CHF (congestive heart failure) I50.9 PAF (paroxysmal atrial fibrillation) I48.0 Diabetes mellitus E11.9
--- NOTE | 2023-02-12 09:49 | Pharmacy Report ---
Pharmacy Glycemic Short Note 2 - Date of Service February 12, 2023 - Glycemic Short BSG Results (Last 24 hours): 02/11/23 02/11/23 02/11/23 11:26 16:53 19:52 Glucose POC Glucose 134 H 147 H 174 H 02/12/23 02/12/23 05:54 07:43 Glucose 101 H POC Glucose 110 H OUTPATIENT ANTIDIABETIC REGIMEN: * Metformin 850 mg PO daily * Pioglitazone 30 mg PO daily * A1c 6.5% 02/08/23 ASSESSMENT: 02/12/23 * Patient's blood sugars well controlled, had 5 units basal insulin 02/09 and 02/10, none required yesterday, fasting 101mg/dl, continue to hold basal at this time to prevent hypoglycemia. * Continue CF/CR, patient requiring ~ 6 units/day. * Actos to be discontinued on discharge d/t fluid retention. 02/07/23 * Chun is a 82 yo T2DM who presented with shortness of breath. PMH of CKD, paroxysmal A-fib, hyperlipidemia, and hypertension. * Oral anti-diabetic agents have been held for admission. Will start patient on weight based SQ basal + bolus insulin. * Will dose Lantus conservatively given age, insulin naive, YASMANY, and unknown degree of outpatient glycemic control. PLAN FOR INPATIENT GLYCEMIC CONTROL: * Hold outpatient oral diabetes medications * Basal insulin- hold at this time * Bolus insulin * NovoLog per scale ACHS or Q6hrs while NPO * Goal Range: Low 120 mg/dL - High 150 mg/dL * Correction Factor: 45 mg/dL/unit * Nutritional / Prandial insulin per carb ratio of 1 unit per 15 grams CHO consumed
--- NOTE | 2023-02-12 11:34 | Cardiology Progress Note ---
Date of Service February 12, 2023 Assessment & Plan (1) Persistent atrial fibrillation: Plan: Tolerating fairly high-dose metoprolol succinate (150 mg twice daily) with better rate control and without hypotension, continue this. Continue digoxin 125 mcg daily, this could be given orally and does not need to be given IV. Digoxin blood level acceptable. High [id number] score, continue reduced dose apixaban given advanced age and diminished renal function. (2) Heart failure with mid-range ejection fraction (HFmEF): Plan: Feels much better, appears euvolemic to mildly hypovolemic by neck veins, leg edema gradually improving. BUN/creatinine increasing, agree with holding diuretic today, per nephrology plan is Bumex 1 mg twice daily starting tomorrow if renal function allows. (3) Moderate mitral regurgitation: (4) Elevated liver transaminase level: (5) YASMANY (acute kidney injury): Plan: Per nephrology. (6) Chronic kidney disease, stage 3: (7) Hypertension: Admission and Anticipated Discharge Date Admission Date: February 07, 2023 Subjective Feels well, has not noted dyspnea for a few days now. No chest pain, palpitations, or lightheadedness. Telemetry shows atrial fibrillation with borderline controlled but improved ventricular rate (80-100 bpm) Physical Exam Physical Exam: Appears comfortable BP normotensive. Pulse 90 bpm and irregular. Skin: Scattered ecchymoses both forearms, no generalized lesions. HEENT: unremarkable. Neck: JVP just below the clavicle at 90 degrees, no carotid bruits. Lungs: Dullness left base, clear overall, no wheezing, rhonchi, or accessory muscle use. Cardiac: Faint heart tones, irregular rhythm, no obvious murmur or gallop. Abdomen: benign. Extremities: 1+ pretibial pitting edema. Neurologic: normal affect and conversation, nonfocal. Results & Data Laboratory Results Normal electrolytes, BUN 80 (73 yesterday), creatinine 2.57 (2.44 yesterday). Digoxin level 0.4. PG Care Time/CCT Total # of Minutes Spent Total Time Spent with Patient: Total time spent is greater than 50% in coordination of care (as documented) at patient's floor/unit and/or counseling patient: Coding Level of Care Code 87638 SUB INP/OBS CARE 2/35MIN Diagnoses Persistent atrial fibrillation I48.19 Heart failure with mid-range ejection fraction (HFmEF) I50.22 Moderate mitral regurgitation I34.0 Elevated liver transaminase level R74.01 YASMANY (acute kidney injury) N17.9 Chronic kidney disease, stage 3 N18.30 Hypertension I10
[2023-02-12] MEDS: DIGOXIN 125 MCG in SYRINGE 9.5 ML IV SCH (14:30)
[2023-02-12] MEDS: BIMATOPROST 0.01% OP SOLN 2.5 ML BTL OP SCH (20:52)
[2023-02-13 06:34] LABS: Hematocrit (blood only) 32.1 % (42.0-52.0); Hemoglobin 10.8 g/dl (14.0-18.0); Mean Corpuscular Hemoglobin 29.2 pg (25.0-34.0); Mean Corpuscular Hgb Conc 33.6 g/dL (32.0-36.0); Mean Corpuscular Volume 86.8 fL (80.0-100.0); Platelet Count 190 K/uL (130-400); RDW Coefficient of Variation 15.7 % (11.5-14.5); RDW Standard Deviation 49.3 fL (36.4-46.3); White Blood Count 7.74 K/ul (4.8-10.8)
[2023-02-13 06:58] LABS: Albumin Globulin Ratio 1.4 (0.9-2); BUN Creatinine Ratio 35.8 (10-20); Bilirubin,Total 0.6 mg/dl (0.2-1.0); Creatinine Clr Calc Pharmacy 32.2 ml/min; Est GFR (African American) 30.1 ml/min; Globulin 2.1 gm/dl (2.5-4.0); Potassium 3.3 mmol/L (3.5-5.1); Total Protein 5.1 gm/dl (6.0-8.3)
--- NOTE | 2023-02-13 07:50 | Hospitalist Progress Note ---
Date of Service February 13, 2023 Assessment & Plan (1) Persistent atrial fibrillation: (2) Heart failure with mid-range ejection fraction (HFmEF): (3) Moderate mitral regurgitation: (4) Elevated liver transaminase level: (5) YASMANY (acute kidney injury): (6) Chronic kidney disease, stage 3: (7) Hypertension: Plan Chun is an 82 year old man with history of CKD, pAFib (Dx 2 Mo. ago, uncontrolled), anticoagulation (on Eliquis), HTN, and HLD who presented to the ER with increasing dyspnea and an acute loss of energy/fatigue starting on Friday. Patient was admitted for management of acute CHF in the setting of uncontrolled A Fib. Acute systolic congestive heart failure - 02/10 CXR - Persistent pulmonary edema, decrease in a left pleural effusion, persistent bibasilar opacities which may be related to pulmonary edema. - Echocardiogram * Echo 02/2022: EF 60-65%, no wall motion abnormalities, grade 1 diastolic dysfunction * Echo 02/07/23: EF 35-40%, moderate global hypokinesis of LV, LV mildly dilated, RVSP 30-40 mmHg - I/O - Pos 150 ml (in last 24h) - Cardiology and Nephrology Consultation: * IV diuresis held 02/12 d/t evidence of intravascular volume contraction and rising creatinine * Recommend hospitalization until creatinine stabilizes - Creatinine improved 02/13 (2.29), restarted Bumex 1 mg PO BID * Continue to follow creatinine New onset CMP - Tachycardia induced. Cardio adjusting b blockers. Paroxysmal Atrial Fibrillation - CHADsVASC 5 - Holter Monitor 12/2022: * Primarily NSR, A Fib burden 24% - Cardiology Consultation * Continue Metoprolol succinate to 150 mg PO BID * Continue Digoxin 125 mcg q24h; Dig level 0.4 * Hold Amiodarone d/t concern for hepatic toxicity * Discontinue Aspirin as patient is on Apixaban YASMANY on CKD - Baseline Cr 1.4 - Diabetic CKD, currently 2.29 sec to CRS/diuresis - Nephrology consultation: * Continue Bumex 1 mg PO BID * Continue to hold benazepril and metformin * Continue to follow fluid balance * Continue to monitor inpatient until creatinine stabilizes Transaminitis - Labs: * 02/13 AST/ALT 219/180 H (respectively) - Ddx: Hepatic congestion d/t CHF > amiodarone toxicity (discontinued on admission) * Of note, transaminases normal prior to December when Amiodarone started - Liver US: * There is slight prominence of the portal triads. - Follow CMP T2DM w/ Nephropathy (severe) - Metformin held on admission (d/t YASMANY) - Pioglitazone held on admission (can increase fluid retention) - will d/c on discharge - BSG on presentation 148, goal 110-140 * Weight based basal bolus at this time - 02/07 HbA1c 6.5 HTN - Amlodipine, HCTZ, and Benazepril held on admission - Metoprolol succinate now 150 mg BID - BP remains well controlled (110-120/60-70) - Continue to monitor BP DVT prophylaxis: Anticoagulated on Eliquis CODE STATUS: DNR/DNI Diet: DM 2, low-salt, heart healthy Disposition: PCU for CHF with A-fib, plans to discharge with HH/PT, patient declines recommended inpatient rehab Admission and Anticipated Discharge Date Admission Date: February 07, 2023 Supervising Physician Co-Signing Physician Notes Resident Physician Supervision Note: I independently interviewed and examined the patient and verified the kraft history and physical, reviewed labs and image studies and agree with resident findings and care plan. Subjective 02/13: Patient was resting comfortably in bedside chair upon arrival. He notes resolution of his dyspnea and fatigue and continues to appreciate improvement in his LE edema. He denies any chest discomfort, pleuritic pains, lightheadedness, or abdominal pain. Patient notes that his frequency of urination has decreased and that he continues to urinate without dysuria. Physical Exam Physical Exam: Gen: NAD, alert, interactive Neuro: AO x 3, no focal neurologic defects HEENT: NCAT, Supple, no LAD, resolved JVD Resp:Non-labored, no wheezing, CTAB CV:irregular rate, irregular rhythm, normal S1/S2, no MRG Abd: Soft, non-distended, no TTP, normoactive bowels, no masses Extr: 2+ dp bilaterally, 2+ pitting edema of bilateral LE (to judd), symmetric dark erythema (to mid-calf) bilaterally, superficial blisters and serous drainage present (diminished) Results & Data Results & Data Vital Signs (Past 12 Hours) Vital Signs Temp Pulse Pulse Resp BP Pulse Ox O2 Del Method 02/12/23 23:00 90 02/13/23 03:00 36.6 C 95 H 20 109/61 97 Room Air 02/13/23 00:49 Room Air 02/12/23 22:48 36.3 C L 102 H 20 106/57 L 98 Room Air Resident Activity Tracking Resident Involvement: Resident Care Provided Care Provided: Adult Hospital Medicine
[2023-02-13] MEDS: CHOLECALCIFEROL 1,000 UNITS 25 MCG TAB PO SCH (08:18)
[2023-02-13] MEDS: METOPROLOL SUCC 50MG EXT REL TAB PO SCH ×2 (08:21→20:35)
[2023-02-13] MEDS: APIXABAN 2.5 MG TAB PO SCH ×2 (08:22→20:35)
[2023-02-13] MEDS: FERROUS SULFATE 325 MG TAB PO SCH (08:23)
[2023-02-13] MEDS: INSULIN ASPART PER UNIT CHARGE SC SCH ×4 (08:26→20:34)
--- NOTE | 2023-02-13 08:53 | Nephrology Progress Note ---
Date of Service February 13, 2023 Assessment & Plan (1) YASMANY (acute kidney injury): Plan: * Nonoliguric YASMANY due to CRS * 02/07/23 Echocardiogram shows drop in LVEF to 35-40% and moderate MR * Urine microscopy is acellular * 02/07/23 Renal US is negative for obstruction * Hold benazepril and metformin for now * Net 0.36 L diuresis overnight, total 4.9 L diuresis since admission * Cr has stabilized off IV diuretic therapy * Agree w/ transition to Bumex 1 mg po BID * Monitor UO, volume status, PRP (2) Chronic kidney disease, stage 3: Plan: * CKD attributed to DKD * Baseline creatinine 1.4 mg/dL * Will need outpatient Nephrology with Dr. Witt in [place] (3) Essential hypertension: Plan: * BP is acceptable off Benazepril, Amlodipine and HCTZ * Recommend avoiding Amlodipine as this may have contributed to LE swelling * As kidney function stabilizes, if BP increases would consider ARB + loop diuretic for BP management (4) CHF (congestive heart failure): Plan: * 02/07/23 echocardiogram show LVEF 35-45% w/ mod MR * Metoprolol tartrate for atrial fibrillation rate control * Recommend 1500 mg NaCl restricted diet. Will consult dietitian today to provide patient w/ education * Recommend weight based diuretic regimen when patient returns home. He should weigh himself each morning and increase Bumex from 1 mg BID to 1 mg TID if he gains 5 lbs or more overnight. He should reduce Bumex back to 1 mg BID after 48 hrs (2 days of additional doses) (5) PAF (paroxysmal atrial fibrillation): Plan: * On Apixaban, Metoprolol (6) Diabetes mellitus: Plan: * As outpatient, will need to consider adding SGLT2i therapy Admission and Anticipated Discharge Date Admission Date: February 07, 2023 Subjective Mr. Plasencia was evaluated in his hospital room this morning. His LE edema co ntinues to improve and the weeping has decreased. He is anxious to participate in PT this morning. Review of Systems Constitutional: no fever Eyes: no problem reported Ear, Nose, Mouth, Throat: no problem reported Respiratory: no cough and no dyspnea Cardiovascular: no chest pain Gastrointestinal: no abdominal pain, no nausea, no vomiting and no diarrhea/loose stools Genitourinary: no dysuria or no hematuria Integumentary: no rash Physical Exam Constitutional: not in distress Eyes: PERRL, conjunctivae normal, anicteric sclerae ENMT: external ear and nose normal, oropharynx normal Neck: trachea midline, no thyromegaly Respiratory: normal respiratory effort, lungs clear to auscultation Cardiovascular: Rate/Rhythm: regular rhythm, + tachycardic and + irregularly irregular Extremities: + edema (1+ pretibial pitting edema) Gastrointestinal (Abdomen): normal bowel sounds, soft, nontender, no hepatosplenomegaly Neurologic: Speech / Cognition: normal speech and normal cognition Results & Data Vital Signs (Past 12 Hours) Vital Signs Temp Pulse Pulse Pulse Resp BP Pulse Ox 02/13/23 08:28 36.6 C 98 H 110 H 16 105/60 02/12/23 23:00 90 02/13/23 03:00 36.6 C 95 H 20 109/61 97 02/13/23 00:49 02/12/23 22:48 36.3 C L 102 H 20 106/57 L 98 O2 Del Method 02/13/23 08:28 02/12/23 23:00 02/13/23 03:00 Room Air 02/13/23 00:49 Room Air 02/12/23 22:48 Room Air Laboratory Results Laboratory Tests 02/13/23 02/13/23 05:41 05:41 WBC 7.74 Hgb 10.8 L Hct 32.1 L Plt Count 190 Sodium 135 L Potassium 3.3 L Chloride 99 Carbon Dioxide 28 BUN 82 H Creatinine 2.29 H Glucose 101 H Calcium 8.0 L Total Bilirubin 0.6 AST 219 H ALT 180 H Alkaline Phosphatase 61 Albumin 3.0 L PG Care Time/CCT Total # of Minutes Spent Total Time Spent with Patient: Total time spent is greater than 50% in coordination of care (as documented) at patient's floor/unit and/or counseling patient: Coding Level of Care Code 95533 SUB INP/OBS CARE 3/50MIN Diagnoses YASMANY (acute kidney injury) N17.9 Chronic kidney disease, stage 3 N18.30 Essential hypertension I10 CHF (congestive heart failure) I50.9 PAF (paroxysmal atrial fibrillation) I48.0 Diabetes mellitus E11.9
[2023-02-13] MEDS: BUMETANIDE 1 MG TAB PO SCH ×2 (09:41→20:35)
--- NOTE | 2023-02-13 10:15 | Cardiology Progress Note ---
Date of Service February 13, 2023 Assessment & Plan (1) Persistent atrial fibrillation: Plan: Reasonable rate control on high-dose metoprolol and low-dose digoxin. No further change in his negative chronotropic regimen. Check digoxin level tomorrow before discharge. High [id number] score, continue reduced dose apixaban given advanced age and diminished renal function. (2) Heart failure with mid-range ejection fraction (HFmEF): Plan: Feels much better, appears euvolemic by neck veins, leg edema gradually improving. BUN slightly increased, creatinine slightly decreased overnight. Diuretic therapy per nephrology. (3) Moderate mitral regurgitation: (4) Elevated liver transaminase level: (5) YASMANY (acute kidney injury): (6) Chronic kidney disease, stage 3: (7) Hypertension: Admission and Anticipated Discharge Date Admission Date: February 07, 2023 Subjective Feels well, slept well, no dyspnea over the past several days. No chest pain, palpitations, or lightheadedness. Telemetry shows atrial fibrillation with reasonably controlled ventricular rate (80-100 bpm). Physical Exam Physical Exam: Appears comfortable BP normotensive. Pulse 90 bpm and irregular. Skin: Scattered ecchymoses both forearms, no generalized lesions. HEENT: unremarkable. Neck: JVP at the clavicle at 90 degrees, no carotid bruits. Lungs: Dullness left base, clear overall, no wheezing, rhonchi, or accessory muscle use. Cardiac: Faint heart tones, irregular rhythm, no obvious murmur or gallop. Abdomen: benign. Extremities: 1+ pretibial pitting edema. Neurologic: normal affect and conversation, nonfocal. Results & Data Laboratory Results Sodium 135, potassium 3.3, BUN 82 (80 yesterday), creatinine 2.29 (2.57 yesterday). PG Care Time/CCT Total # of Minutes Spent Total Time Spent with Patient: Total time spent is greater than 50% in coordination of care (as documented) at patient's floor/unit and/or counseling patient: Coding Level of Care Code 99510 SUB INP/OBS CARE 2/35MIN Diagnoses Persistent atrial fibrillation I48.19 Heart failure with mid-range ejection fraction (HFmEF) I50.22 Moderate mitral regurgitation I34.0 Elevated liver transaminase level R74.01 YASMANY (acute kidney injury) N17.9 Chronic kidney disease, stage 3 N18.30 Hypertension I10
[2023-02-13] MEDS ORDERED: POTASSIUM CHLORIDE CRTAB 20 MEQ TABCR PO STA (11:11)
[2023-02-13] MEDS: DIGOXIN 125 MCG in SYRINGE 9.5 ML IV SCH (12:51)
[2023-02-13] MEDS: BIMATOPROST 0.01% OP SOLN 2.5 ML BTL OP SCH (20:34)
[2023-02-14 06:58] LABS: Albumin Globulin Ratio 1.4 (0.9-2); Albumin Level 3.1 gm/dl (3.4-5.0); BUN Creatinine Ratio 37.5 (10-20); Bilirubin,Total 0.7 mg/dl (0.2-1.0); Calcium 8.1 mg/dl (8.6-10.3); Creatinine Clr Calc Pharmacy 30.8 ml/min; Est GFR (African American) 28.5 ml/min; Est GFR (Non-African American) 24.6 ml/min; Globulin 2.2 gm/dl (2.5-4.0); Potassium 3.7 mmol/L (3.5-5.1); Total Protein 5.3 gm/dl (6.0-8.3)
[2023-02-14] MEDS: APIXABAN 2.5 MG TAB PO SCH (08:04)
[2023-02-14] MEDS: METOPROLOL SUCC 50MG EXT REL TAB PO SCH (08:04)
[2023-02-14] MEDS: FERROUS SULFATE 325 MG TAB PO SCH (08:04)
[2023-02-14] MEDS: BUMETANIDE 1 MG TAB PO SCH (08:04)
[2023-02-14] MEDS: INSULIN ASPART PER UNIT CHARGE SC SCH ×2 (08:04→12:14)
[2023-02-14] MEDS: CHOLECALCIFEROL 1,000 UNITS 25 MCG TAB PO SCH (08:04)
--- NOTE | 2023-02-14 08:39 | Pharmacy Report ---
Pharmacy Glycemic Short Note 2 - Date of Service February 14, 2023 - Glycemic Short BSG Results (Last 24 hours): 02/13/23 02/13/23 02/13/23 11:40 17:08 20:04 Glucose POC Glucose 163 H 163 H 205 H 02/14/23 02/14/23 06:03 07:25 Glucose 105 H POC Glucose 112 H OUTPATIENT ANTIDIABETIC REGIMEN: * Metformin 850 mg PO daily * Pioglitazone 30 mg PO daily * A1c 6.5% 02/08/23 ASSESSMENT: 02/14/23 * BSGs continue to increase throughout the day w/ controlled fasting BSG * Will continue to hold basal insulin, but will tighten carb ratio today 02/12/23 * Patient's blood sugars well controlled, had 5 units basal insulin 02/09 and 02/10, none required yesterday, fasting 101mg/dl, continue to hold basal at this time to prevent hypoglycemia. * Continue CF/CR, patient requiring ~ 6 units/day. * Actos to be discontinued on discharge d/t fluid retention. 02/07/23 * Chun is a 82 yo T2DM who presented with shortness of breath. PMH of CKD, paroxysmal A-fib, hyperlipidemia, and hypertension. * Oral anti-diabetic agents have been held for admission. Will start patient on weight based SQ basal + bolus insulin. * Will dose Lantus conservatively given age, insulin naive, YASMANY, and unknown degree of outpatient glycemic control. PLAN FOR INPATIENT GLYCEMIC CONTROL: * Hold outpatient oral diabetes medications * Basal insulin- hold at this time * Bolus insulin * NovoLog per scale ACHS or Q6hrs while NPO * Goal Range: Low 120 mg/dL - High 150 mg/dL * Correction Factor: 45 mg/dL/unit * Nutritional / Prandial insulin per carb ratio of 1 unit per 10 grams CHO consumed
--- NOTE | 2023-02-14 08:56 | Nephrology Progress Note ---
Date of Service February 14, 2023 Assessment & Plan (1) YASMANY (acute kidney injury): Plan: * Nonoliguric YASMANY due to CRS * 02/07/23 Echocardiogram shows drop in LVEF to 35-40% and moderate MR * Urine microscopy is acellular * 02/07/23 Renal US is negative for obstruction * Hold benazepril and metformin for now * I&O essentially matched last 24 hours, total 4.9 L diuresis since admission * Cr is relatively stable at 2.4 (2.29 yesterday) * Recommend reduce Bumex 1 mg po daily * Monitor UO, volume status, PRP (2) Chronic kidney disease, stage 3: Plan: * CKD attributed to DKD * Baseline creatinine 1.4 mg/dL * Will need outpatient Nephrology with Dr. Witt in [place] (3) Essential hypertension: Plan: * BP is acceptable off Benazepril, Amlodipine and HCTZ * Recommend avoiding Amlodipine as this may have contributed to LE swelling * As kidney function stabilizes, if BP increases would consider ARB + loop diuretic for BP management (4) CHF (congestive heart failure): Plan: * 02/07/23 echocardiogram show LVEF 35-45% w/ mod MR * Metoprolol tartrate for atrial fibrillation rate control * Recommend 1500 mg NaCl restricted diet. Will consult dietitian today to provide patient w/ education * Recommend weight based diuretic regimen when patient returns home. He should weigh himself each morning and increase Bumex from 1 mg daily to 1 mg BID if he gains 5 lbs or more overnight. He should reduce Bumex back to 1 mg daily after 48 hrs (2 days of additional doses) (5) PAF (paroxysmal atrial fibrillation): Plan: * On Apixaban, Metoprolol (6) Diabetes mellitus: Plan: * As outpatient, will need to consider adding SGLT2i therapy Admission and Anticipated Discharge Date Admission Date: February 07, 2023 Subjective Mr. Plasencia was evaluated in his hospital room this morning. His LE edema continues to improve and the weeping has decreased. He voices no new medical concerns Review of Systems Constitutional: no fever Eyes: no problem reported Ear, Nose, Mouth, Throat: no problem reported Respiratory: no cough and no dyspnea Cardiovascular: no chest pain Gastrointestinal: no abdominal pain, no nausea, no vomiting and no diarrhea/loose stools Genitourinary: no dysuria or no hematuria Integumentary: no rash Physical Exam Constitutional: not in distress Eyes: PERRL, conjunctivae normal, anicteric sclerae ENMT: external ear and nose normal, oropharynx normal Neck: trachea midline, no thyromegaly Respiratory: normal respiratory effort, lungs clear to auscultation Cardiovascular: Rate/Rhythm: regular rhythm, + tachycardic and + irregularly irregular Extremities: + edema (1+ pretibial pitting edema) Gastrointestinal (Abdomen): normal bowel sounds, soft, nontender, no hepatosplenomegaly Neurologic: Speech / Cognition: normal speech and normal cognition Results & Data Vital Signs (Past 12 Hours) Vital Signs Temp Pulse Pulse Resp BP Pulse Ox O2 Del Method 02/14/23 08:00 105 H 02/14/23 08:11 36.6 C 61 20 116/75 98 Room Air 02/14/23 03:12 36.6 C 100 H 18 100/63 94 Room Air 02/14/23 00:54 96 H 02/13/23 23:00 36.2 C L 101 H 18 111/70 98 Room Air Laboratory Results Laboratory Tests 02/14/23 06:03 Sodium 136 Potassium 3.7 Chloride 100 Carbon Dioxide 27 BUN 90 H Creatinine 2.40 H Glucose 105 H PG Care Time/CCT Total # of Minutes Spent Total Time Spent with Patient: Total time spent is greater than 50% in coordination of care (as documented) at patient's floor/unit and/or counseling patient: Coding Level of Care Code 85093 SUB INP/OBS CARE 3/50MIN Diagnoses YASMANY (acute kidney injury) N17.9 Chronic kidney disease, stage 3 N18.30 Essential hypertension I10 CHF (congestive heart failure) I50.9 PAF (paroxysmal atrial fibrillation) I48.0 Diabetes mellitus E11.9
[2023-02-14 09:16] LABS: Hematocrit (blood only) 32.5 % (42.0-52.0); Hemoglobin 10.7 g/dl (14.0-18.0); Mean Corpuscular Hemoglobin 28.7 pg (25.0-34.0); Mean Corpuscular Hgb Conc 32.9 g/dL (32.0-36.0); Mean Corpuscular Volume 87.1 fL (80.0-100.0); Mean Platelet Volume 12.7 fL (9.4-12.4); Platelet Count 204 K/uL (130-400); RDW Coefficient of Variation 15.8 % (11.5-14.5); Red Blood Count 3.73 M/uL (4.70-6.10); White Blood Count 7.18 K/ul (4.8-10.8)
--- NOTE | 2023-02-14 10:49 | Discharge Summary ---
Date of Service February 14, 2023 Admission HPI Per Admitting Provider Chun is an 82-year-old male with a past medical history of CKD, paroxysmal A- fib on amiodarone and apixaban, hyperlipidemia, hypertension recently seen 01/20/2023 as outpatient cardiology for exertional dyspnea and started on antiarrhythmic therapy who presents to the hospital today with shortness of breath. Feels shortness of breath has been slowly worsening over the last month and has not been associated with fever, chills, cough, melena, bleeding. In the ER he is mildly hypotensive at 95/56, pulse 95, 94% on room air. He has no leukocytosis, hemoglobin is 11.9 with no baseline available for review and norm ocytic, platelet count is normal, creatinine is 2.34 without baseline available for review, he has a mild transaminitis 210/152 without prior baseline, troponin is 26.9, BNP is elevated at 811, COVID is negative, and chest x-ray shows cardiomegaly with mild pulmonary edema and a small left pleural effusion. "Bill" reports he could climb stairs last week but has had increasing SoB last month, sinc Friday 'lost all power'. No chest pain or chest pressure No palpitations Legs have been much worse in the last week an dleaking, do not normally leak SoB 'just about with anything' but doesn't think he has much orthopnea, sleeps up on a single pillow. No pain No fevers, chills, or sweats No nausea, vomiting or diarrhea BM has been a few days, last was hard and brown. No blood/melena but is dark and near black since taking iron supplements He has been peeing more since beeing on lasix. Reccomended he see nephrology. Took no medicines this morning except eliquis. Per family practice note review: 12/19/2022: Creatinine 1.4 08/30/2022: ALT 13/AST 15 Medical History: Reviewed Medications: Reviewed Surgical History: Reviewed Family history: Reviewed Allergies: Reviewed Social History: No tobacco products, no Code Status:DNR/DNI Admission Exam Per Admitting Provider General: A&Ox3. NAD. Cooperative. HEENT: Atraumatic, normocephalic. Vision/hearing intact Pulm: Bibasilar crackles. Symmetrical chest rise. No increased work of breathing. No respiratory distress. Cardiac: irir, tachycardic, +sm. Radial pulses intact and symmetrical. +JVD. Abdominal: Nontender, nondistended, soft. BS present. Ext: Bilateral 3+ pitting edema, weeping wounds wrapped with clean dressing. Sensation diminished in feet bilaterally but grossly intact to soft touch. Principal Diagnosis Acute CHF Atrial Fibrillation Discharge Exam Gen: NAD, alert, interactive Neuro: AO x 3, no focal neurologic defects HEENT: NCAT, Supple, no LAD, resolved JVD Resp:Non-labored, no wheezing, CTAB CV:irregular rate, irregular rhythm, normal S1/S2, no MRG Abd: Soft, non-distended, no TTP, normoactive bowels, no masses Extr: 2+ dp bilaterally, 2+ pitting edema of bilateral LE (to judd), symmetric dark erythema (to mid-calf) bilaterally, superficial blisters and serous drainage present (diminished) Discharge Data Allergies Allergy/AdvReac Type Severity Reaction Status Date / Time carvedilol [From Coreg] AdvReac Unknown Elevated BP Unverified 01/20/23 15:32 Consultations 02/07/23 13:57 ED Decision to Admit Stat 02/07/23 17:06 Consult Cardiology Routine Consult Nephrology Routine Ordered Studies 02/07/23 13:55 US liver Routine 02/07/23 14:49 US Kidney Bladder [US renal/blad retro comp] Routine Hospital Course (1) Persistent atrial fibrillation: (2) Heart failure with mid-range ejection fraction (HFmEF): (3) Moderate mitral regurgitation: (4) Elevated liver transaminase level: (5) YASMANY (acute kidney injury): (6) Chronic kidney disease, stage 3: (7) Hypertension: Magaly Mccollum is an 82 year old man with history of CKD, pAFib (Dx 2 Mo. ago, uncontrolled), anticoagulation (on Eliquis), HTN, and HLD who presented to the ER with increasing dyspnea and an acute loss of energy/fatigue starting on Friday. Patient was admitted for management of acute CHF in the setting of uncontrolled A Fib. Acute systolic congestive heart failure - 02/10 CXR - Persistent pulmonary edema, decrease in a left pleural effusion, persistent bibasilar opacities which may be related to pulmonary edema. - Echocardiogram * Echo 02/2022: EF 60-65%, no wall motion abnormalities, grade 1 diastolic dysfunction * Echo 02/07/23: EF 35-40%, moderate global hypokinesis of LV, LV mildly dilated, RVSP 30-40 mmHg - I/O - Pos 50 ml (in last 24h) - Cardiology and Nephrology Consultation: * IV diuresis held 02/12 d/t evidence of intravascular volume contraction and rising creatinine * Creatinine improved 02/13 (2.29), restarted Bumex 1 mg PO BID * Creatinine elevated to 2.4 on 02/14 recommend continued diuresis with Bumex 1 mg PO daily - Recommend close outpatient lab follow up Friday/Friday of next week with CMP - Patient to increase Bumex to 1 mg PO BID if weight increases > 5 lbs over 24 hours - Continue daily weights New onset CMP - Tachycardia induced. Cardio adjusted b blockers with better HR control. Paroxysmal Atrial Fibrillation - CHADsVASC 5 - Holter Monitor 12/2022: * Primarily NSR, A Fib burden 24% - Cardiology Consultation * Continue Metoprolol succinate to 150 mg PO BID * Continue Digoxin 125 mcg q24h - Recommend checking Digoxin level Friday/Friday of next week * Hold Amiodarone d/t concern for hepatic toxicity * Discontinue Aspirin as patient is on Apixaban YASMANY on CKD - Baseline Cr 1.4 - Diabetic CKD, currently 2.29 sec to CRS/diuresis - Nephrology consultation: * Continue Bumex 1 mg PO daily * Continue to hold benazepril and metformin (until Creatinine < 2.0) * Continue to follow fluid balance with daily weights Transaminitis - Labs: 02/13 AST/ALT 195/182 H (respectively) - Ddx: Hepatic congestion d/t CHF > amiodarone toxicity (discontinued on admission) * Of note, transaminases normal prior to December when Amiodarone started - Liver US: There is slight prominence of the portal triads. - Follow CMP as outpatient T2DM w/ Nephropathy (severe) - Metformin held on admission (d/t YASMANY) - recommend ongoing hold until Cr > 2.0 - Pioglitazone held on admission (d/t YASMANY) - discontinued as not recommended in CHF patients - BSG on presentation 148, goal 110-140 * Weight based basal bolus as inpatient (16 units in last 24 hours) but am 02/14 - 104. * Continue BSG checks upon discharge * Close follow up with PCP recommended to further adjust outpatient DM regimen - 02/07 HbA1c 6.5 HTN - Amlodipine, HCTZ, and Benazepril held on admission - Metoprolol succinate now 150 mg BID - BP remains well controlled (110-120/60-70) - Continue to monitor BP outpatient DVT prophylaxis: Anticoagulated on Eliquis CODE STATUS: DNR/DNI Diet: DM 2, low-salt, heart healthy Disposition: discharge with HH/PT, patient declines recommended inpatient rehab Total Time Total Time Spent Total Time Spent (In Minutes): See attending attestation Discharge Plan Discharge Items Patient Disposition: Home - Home Health Services Reason For Visit: ACUTE CHF, AFIB Discharge Diagnosis: Acute CHF Atrial Fibrillation Activity: Per Instructions section Non-emergency contact: Primary Care Provider and [employer] [facility] Call non-emergency contact if: you have any medication questions and your wound has increased drainage Follow-up/Referrals: Krystal Witt MD [Physician] - 04/11/23 10:40 am ([place] office) Nadia Sapp PA-C [Primary Care Provider] - (The office will call you wi th a follow up appt) Diet: Carb Consistent or DM2 and Heart Healthy Addtl Attending Provider Instructions: You were admitted to the hospital for diuresis after presenting for increased shortness of breath and fatigue in the setting of Heart Failure and uncontrolled Atrial Fibrillation. During your admission, you received IV diuretics which helped remove some of the excess fluid from your lungs and lower extremities. You were then transitioned to oral diuretics (Bumex) for ongoing fluid management. In addition, during admission your Atrial Fibrillation was treated with Metoprolol and Digoxin. These medications were used to help control your heart rate, which was elevated upon arrival. Physical and occupational therapy evaluated you while you were inpatient and recommended transition to inpatient rehab upon discharge, ultimately you decided to go home with home health and PT services. We were able to arrange home health on Friday through [facility] services. Recommendations: - Continue Bumex 1 mg by mouth in the morning - Measure your weight daily, if your weight increases by more than 5 lbs in 24 hours take Bumex 1 mg in AM and PM - Continue to follow a low sodium diet (information was provided to you by the decal applier inpatient) - Continue Metoprolol 150 mg by mouth twice daily - Continue Digoxin 125 mcg by mouth daily (PCP should check a Digoxin level at follow up) - Continue to hold (do not take) Amlodipine, Atenolol, Benazepril, Hydrochlorothiazide, Amiodarone, and Aspirin (follow up with your PCP as an outpatient regarding ongoing blood pressure management, as your blood pressure has been controlled in the hospital). - Continue to hold do not take) Metformin - Follow up with your PCP w/in 1 week of discharge, preferably Friday/Friday, to assess labs (CMP) and diabetes medications moving forward Pending Studies at Discharge: No Stand-Alone Forms: [facility], Smoking Cessation Medications and DC Order Prescriptions: New digoxin 125 mcg (0.125 mg) tablet 125 mcg PO DAILY Qty: 30 0RF metoprolol succinate 50 mg Tablet Extended Release 24 Hr 150 mg PO BID 30 Days Qty: 180 0RF bumetanide 1 mg Tablet 1 mg PO DAILY 30 Days Qty: 30 0RF Continued pioglitazone 30 mg tablet 30 mg PO DAILY ferrous sulfate 325 mg (65 mg iron) tablet 650 mg PO DAILY doxycycline hyclate 50 mg capsule 50 mg PO 2XWK Lumigan 0.01 % drops 1 drp ophthalmic (eye) HS mecobalamin (vitamin B12) 5,000 mcg tablet,disintegrating 5,000 mcg PO .COMPLEX Rx Instructions: 5,000 mcg PO twice weekly cholecalciferol (vitamin D3) 50 mcg (2,000 unit) capsule 50 mcg PO DAILY Eliquis 2.5 mg tablet 2.5 mg PO BID Qty: 60 11RF simvastatin 80 mg Tablet 80 mg PO DAILY Discontinued atenolol 50 mg tablet 50 mg PO DAILY Qty: 30 2RF hydrochlorothiazide 25 mg tablet 25 mg PO DAILY amlodipine 5 mg tablet 10 mg PO DAILY aspirin 81 mg tablet,delayed release (DR/EC) 81 mg PO DAILY metformin 500 mg tablet 850 mg PO DAILY benazepril 40 mg tablet 40 mg PO DAILY metoprolol succinate 25 mg tablet extended release 24 hr 25 mg PO DAILY amiodarone 200 mg tablet 200 mg PO DAILY Discharge Orders: Discharge Order- CHF (Routine); Ordered 02/14/23 Ordered By: Jeremie Owens/Other Patient Handouts: Heart Failure Make Changes Diet Admission Data Admit Date/Time: 02/07/23 14:41 Attending Provider: Elsy Swenson Admit Provider: Fadi Lindo Primary Care Provider: Nadia Sapp Other Providers: Fadi Lindo ; John Soto ; Robbi Argueta ; [facility] ; [facility] Other Interventions: Discharge Summary Assessment (RN) Last Done: 02/14/23 14:05 Supervising Physician Co-Signing Physician Notes Resident Physician Supervision Note: I independently interviewed and examined the patient and verified the kraft history and physical, reviewed labs and image studies and agree with resident findings and care plan. Resident Activity Tracking Resident Involvement: Resident Care Provided Care Provided: Adult Hospital Medicine
--- NOTE | 2023-02-14 11:39 | Cardiology Progress Note ---
Date of Service February 14, 2023 Assessment & Plan (1) Persistent atrial fibrillation: Plan: Reasonable rate control on high-dose metoprolol and low-dose digoxin. No further change in his negative chronotropic regimen. Check digoxin level next week at the time of follow-up. High [id number] score, continue reduced dose apixaban given advanced age and diminished renal function. (2) Heart failure with mid-range ejection fraction (HFmEF): Plan: Feels much better, appears euvolemic by neck veins, leg edema gradually improving. Renal function stable, agree with sliding scale diuretic regimen as recommended by nephrology. (3) Moderate mitral regurgitation: (4) Elevated liver transaminase level: (5) YASMANY (acute kidney injury): (6) Chronic kidney disease, stage 3: (7) Hypertension: Plan: Normotensive on current vasoactive regimen. Admission and Anticipated Discharge Date Admission Date: February 07, 2023 Subjective Uneventful night, feels well, no dyspnea. No chest pain, subjective palpitat ions, or lightheadedness. Telemetry shows atrial fibrillation with ventricular rate 100-110 bpm. No sustained high rates greater than 120 bpm. Physical Exam Physical Exam: Appears comfortable BP normotensive. Pulse 100 bpm and irregular. Skin: Scattered ecchymoses both forearms, no generalized lesions. HEENT: unremarkable. Neck: JVP at the clavicle at 90 degrees, no carotid bruits. Lungs: Dullness left base, clear overall, no wheezing, rhonchi, or accessory muscle use. Cardiac: Faint heart tones, irregular rhythm, no obvious murmur or gallop. Abdomen: benign. Extremities: 1+ pretibial pitting edema. Neurologic: normal affect and conversation, nonfocal. Results & Data Vital Signs (Past 12 Hours) Vital Signs Temp Pulse Pulse Resp BP Pulse Ox O2 Del Method 02/14/23 08:00 105 H 02/14/23 08:11 97.9 F 61 20 116/75 98 Room Air 02/14/23 03:12 97.9 F 100 H 18 100/63 94 Room Air 02/14/23 00:54 96 H Laboratory Results Normal electrolytes, BUN 90, creatinine 2.4. PG Care Time/CCT Total # of Minutes Spent Total Time Spent with Patient: Total time spent is greater than 50% in coordination of care (as documented) at patient's floor/unit and/or counseling patient: Coding Level of Care Code 68776 SUB INP/OBS CARE 235MIN Diagnoses Persistent atrial fibrillation I48.19 Heart failure with mid-range ejection fraction (HFmEF) I50.22 Moderate mitral regurgitation I34.0 Elevated liver transaminase level R74.01 YASMANY (acute kidney injury) N17.9 Chronic kidney disease, stage 3 N18.30 Hypertension I10
[2023-02-14] MEDS: DIGOXIN 125 MCG in SYRINGE 9.5 ML IV SCH (12:14)
[2023-02-15] MEDS ORDERED: BUMETANIDE 1 MG TAB PO SCH (09:00)
== END 2023-02-14 15:17 | disposition home health service (06) | DRG 291 ==
LOC: ED 10:04 → EDINP 14:41 → SUATTDRO 14:41 → 4W 17:06